=== PATIENT | male | born 1975 | race Hispanic/Latino ===

== ENCOUNTER 2017-11-01 21:57 | Emergency (ER) | payer OTHER ==
[2017-11-01] MEDS ORDERED: ASPIRIN 325 MG TABLET ONE (22:12)
[2017-11-01] MEDS ORDERED: ACETAMINOPHEN-CODEINE ELIXIR 5 ML UDCUP ONE (22:12)
[2017-11-01] MEDS ORDERED: MAGNESIUM HYDROXIDE 30 ML/UDCUP ONE (22:12)
[2017-11-01] MEDS ORDERED: LIDOCAINE HCL 2% VISCOUS 15 ML UDCUP ONE (22:12)
[2017-11-01 22:19] LABS: BASOPHILS % (AUTO) 0.5 % (0.0-5.0); EOSINOPHILS % (AUTO) 3.8 % (0.0-8.0); HEMATOCRIT 38.7 % (42-54); LYMPHOCYTES % (AUTO) 32.9 % (21.0-51.0); MEAN CORPUSCULAR HEMOGLOBIN 27.3 pg (27.0-33.0); MEAN CORPUSCULAR HGB CONC 34.5 g/dL (32.0-36.0); MEAN CORPUSCULAR VOLUME 79.1 fL (79-99); MONOCYTES % (AUTO) 9.2 % (3.0-13.0); NEUTROPHILS % (AUTO) 53.6 % (40.0-77.0); PLATELET COUNT (AUTO) 301 K/uL (130-400); RED BLOOD CELL COUNT(AUTO) 4.89 MIL/uL (4.50-6.20); RED CELL DISTRIBUTION WIDTH 13.1 % (11.0-15.5); WHITE BLOOD COUNT (AUTO) 6.6 K/uL (4.8-10.8)
[2017-11-01 22:32] LABS: PARTIAL THROMBOPLASTIN TIME 29.4 SEC (26.3-35.5); PROTHROMBIN TIME 10.5 SEC (9.6-11.6)
[2017-11-01 22:42] LABS: CREATININE 0.8 mg/dL (0.5-1.5); POTASSIUM 3.6 mmol/L (3.5-5.1)
[2017-11-01 22:47] LABS: B-TYPE NATRIURETIC PEPTIDE < 5 pg/mL (0-100)
[2017-11-01 22:49] LABS: ALBUMIN 3.7 g/dL (3.5-5.0); BILIRUBIN,TOTAL 0.5 mg/dL (0.2-1.0); TOTAL PROTEIN, SERUM 7.3 g/dL (6.0-8.3)
[2017-11-01] MEDS ORDERED: MAG HYDROX/AL HYDROX/SIMETH ES 30 ML SUSP UDCUP ONE (22:51)
[2017-11-01 23:16] LABS: AMPHET/METH SCREEN,URINE NEGATIVE (NEGATIVE); BARBITURATE SCREEN, URINE NEGATIVE (NEGATIVE); BENZODIAZEPINES SCREEN,URINE NEGATIVE (NEGATIVE); CANNABINOID SCREEN,URINE NEGATIVE (NEGATIVE); COCAINE SCREEN,URINE NEGATIVE (NEGATIVE); OPIATE SCREEN,URINE NEGATIVE (NEGATIVE); PHENCYCLIDINE SCREEN,URINE NEGATIVE (NEGATIVE)
== END 2017-11-02 01:03 | disposition home or self-care (01) ==
LOC: EDH 21:57
DX: R07.89 Other chest pain (principal); K21.9 Gastro-esophageal reflux disease without esophagitis; K29.70 Gastritis, unspecified, without bleeding; I10 Essential (primary) hypertension; E78.5 Hyperlipidemia, unspecified; I25.10 Atherosclerotic heart disease of native coronary artery without angina pectoris; Z98.890 Other specified postprocedural states; Z72.0 Tobacco use; Z71.6 Tobacco abuse counseling
CPT/HCPCS: 36415; 71045; 80053; 80305; 83690; 83880; 84484; 85025; 85610; 85730; 93005

== ENCOUNTER 2019-02-23 12:20 | Emergency (ER) | payer OTHER ==
[2019-02-23 12:57] LABS: BASOPHILS % (AUTO) 0.7 % (0.0-5.0); EOSINOPHILS % (AUTO) 2.2 % (0.0-8.0); HEMATOCRIT 45.5 % (42-54); LYMPHOCYTES % (AUTO) 33.7 % (21.0-51.0); MEAN CORPUSCULAR HEMOGLOBIN 26.6 pg (27.0-33.0); MEAN CORPUSCULAR HGB CONC 33.1 g/dL (32.0-36.0); MEAN CORPUSCULAR VOLUME 80.3 fL (79-99); MONOCYTES % (AUTO) 6.9 % (3.0-13.0); NEUTROPHILS % (AUTO) 56.5 % (40.0-77.0); PLATELET COUNT (AUTO) 236 K/uL (130-400); RED BLOOD CELL COUNT(AUTO) 5.67 MIL/uL (4.50-6.20); RED CELL DISTRIBUTION WIDTH 13.7 % (11.0-15.5); WHITE BLOOD COUNT (AUTO) 6.2 K/uL (4.8-10.8)
[2019-02-23 13:07] LABS: CREATININE 0.9 mg/dL (0.5-1.5); CRP QUANTITATIVE 4.4 mg/L (0.00-9.0); POTASSIUM 4.3 mmol/L (3.5-5.1)
[2019-02-23] MEDS ORDERED: HYDROCODONE/ACETAMINOPHEN 5/325 MG TAB ONE (13:22)
[2019-02-23 14:04] LABS: ERYTHROCYTE SEDIMENTATION RATE 4 MM/HR (0-15)
[2019-02-23] MEDS ORDERED: AMOXICILLIN/POTASSIUM CLAV 875-125 TABLET PO ONE (15:31)
== END 2019-02-23 16:00 | disposition home or self-care (01) ==
LOC: EDH 12:20
DX: T81.41XA Infection following a procedure, superficial incisional surgical site, initial encounter (principal); I10 Essential (primary) hypertension; I25.10 Atherosclerotic heart disease of native coronary artery without angina pectoris; Y83.8 Other surgical procedures as the cause of abnormal reaction of the patient, or of later complication, without mention of misadventure at the time of the procedure; Y92.89 Other specified places as the place of occurrence of the external cause
CPT/HCPCS: 36415; 73140; 80048; 85025; 85651; 86140; 87070; 87076; 87077; 87186

== ENCOUNTER 2019-04-10 11:16 | Emergency (ER) | payer OTHER ==
[2019-04-10] MEDS ORDERED: ONDANSETRON HCL 4 MG/2 ML VIAL ONE (11:53)
[2019-04-10] MEDS ORDERED: KETOROLAC TROMETHAMINE 30MG/ML ONE (11:53)
[2019-04-10] MEDS ORDERED: MORPHINE SULFATE 4 MG/1ML SYG ONE (11:54)
[2019-04-10 11:58] LABS: APPEARANCE,URINE CLOUDY (CLEAR); BILIRUBIN,URINE NEGATIVE (NEGATIVE); COLOR,URINE RED (YELLOW); GLUCOSE, URINE (UA) NEGATIVE (NEGATIVE); KETONES,URINE 5 mg/dL (NEGATIVE); LEUKOCYTE ESTERASE ,URINE MODERATE (NEGATIVE); NITRATE,URINE POSITIVE (NEGATIVE); OCCULT BLOOD,URINE LARGE (NEGATIVE); PH,URINE 6.5 (5.0-8.0); PROTEIN,URINE >=300 mg/dL (NEGATIVE)
[2019-04-10 12:06] LABS: RBC,URINE TNTC /HPF (0-1); WBC,URINE 26-50 /HPF (0-1)
[2019-04-10 12:07] LABS: BACTERIA,URINE Few /HPF (None Seen); SQUAMOUS EPITHELIAL CELL,UR Rare /HPF (0-2)
[2019-04-10 12:15] LABS: BASOPHILS % (AUTO) 0.3 % (0.0-5.0); EOSINOPHILS % (AUTO) 1.5 % (0.0-8.0); LYMPHOCYTES % (AUTO) 37.5 % (21.0-51.0); MEAN CORPUSCULAR HEMOGLOBIN 26.3 pg (27.0-33.0); MEAN CORPUSCULAR HGB CONC 32.9 g/dL (32.0-36.0); MEAN CORPUSCULAR VOLUME 79.9 fL (79-99); NEUTROPHILS % (AUTO) 52.7 % (40.0-77.0); PLATELET COUNT (AUTO) 234 K/uL (130-400); RED BLOOD CELL COUNT(AUTO) 5.14 MIL/uL (4.50-6.20); RED CELL DISTRIBUTION WIDTH 14.2 % (11.0-15.5); WHITE BLOOD COUNT (AUTO) 7.1 K/uL (4.8-10.8)
[2019-04-10 12:20] LABS: POTASSIUM 3.7 mmol/L (3.5-5.1)
[2019-04-10] MEDS ORDERED: CEFTRIAXONE SODIUM 1 GM ONE (12:26)
[2019-04-10] MEDS ORDERED: SODIUM CHLORIDE 0.9% 50 ML IV ONE (12:26)
== END 2019-04-10 14:05 | disposition home or self-care (01) ==
LOC: EDH 11:16
DX: N23 Unspecified renal colic (principal); N13.39 Other hydronephrosis; M54.5 Low back pain; I10 Essential (primary) hypertension; E78.5 Hyperlipidemia, unspecified; I25.10 Atherosclerotic heart disease of native coronary artery without angina pectoris; Z87.442 Personal history of urinary calculi
CPT/HCPCS: 36415; 74176; 80048; 81001; 85025; 87088; 96374; 96375; 99285; J0696; J1885; J2270; J2405

== ENCOUNTER 2019-04-11 07:05 | Emergency (ER) | payer SELFPAY ==
[2019-04-11] MEDS ORDERED: ONDANSETRON 4 MG TABLET ONE (08:26)
[2019-04-11] MEDS ORDERED: MORPHINE SULFATE 4 MG/1ML SYG ONE (08:27)
[2019-04-11] MEDS ORDERED: KETOROLAC TROMETHAMINE 60 MG/2 ML VIAL ONE (08:27)
== END 2019-04-11 09:16 | disposition home or self-care (01) ==
LOC: EDH 07:05
DX: N23 Unspecified renal colic (principal)
CPT/HCPCS: 96372 ×2; 99284; J1885; J2270; Q0162

== ENCOUNTER 2025-01-23 11:25 | Inpatient (IN) | payer BC, OTHER ==
[~2025-01-23] VITALS: Ht 175.3 cm; Wt 119.7 kg
[2025-01-23 12:40] LABS: BASOPHILS # (AUTO) 0.04 K/uL (0.00-0.20); BASOPHILS % (AUTO) 0.5 % (0.0-5.0); EOSINOPHILS # (AUTO) 0.17 K/uL (0.00-0.70); EOSINOPHILS % (AUTO) 2.2 % (0.0-8.0); HEMATOCRIT 45.7 % (42-54); IMMATURE GRANULOCYTE ABSOLUTE 0.05 K/uL (0-1); LYMPHOCYTES # (AUTO) 2.4 K/uL (1.0-4.8); LYMPHOCYTES % (AUTO) 30.5 % (21.0-51.0); MEAN CORPUSCULAR HEMOGLOBIN 26.5 pg (27.0-33.0); MEAN CORPUSCULAR HGB CONC 32.4 g/dL (32.0-36.0); MEAN CORPUSCULAR VOLUME 81.8 fL (79-99); MONOCYTES # (AUTO) 0.6 K/uL (0.1-1.0); MONOCYTES % (AUTO) 8.2 % (3.0-13.0); NEUTROPHILS # (AUTO) 4.5 K/uL (1.8-7.7); PLATELET COUNT (AUTO) 262 K/uL (130-400); RED BLOOD CELL COUNT(AUTO) 5.59 MIL/uL (4.50-6.20); RED CELL DISTRIBUTION WIDTH 13.9 % (11.0-15.5); WHITE BLOOD COUNT (AUTO) 7.8 K/uL (4.8-10.8)
[2025-01-23 12:49] LABS: POTASSIUM 4.4 mmol/L (3.5-5.1)
[2025-01-23 12:53] LABS: ALBUMIN 3.8 g/dL (3.5-5.0); BILIRUBIN,DIRECT 0.1 mg/dL (0.0-0.3); BILIRUBIN,TOTAL 0.3 mg/dL (0.2-1.0); TOTAL PROTEIN, SERUM 7.3 g/dL (6.0-8.3)
[2025-01-23] MEDS: PANTOPrazole 40 MG TAB DR PO ONE (14:30)
[2025-01-23] MEDS: LIDOCAINE HCL 2% VISCOUS 15 ML UDCUP PO ONE (14:31)
[2025-01-23] MEDS: MAG/ALUM/SIMETH 30 ML UDCUP PO ONE (14:31)
[2025-01-23] MEDS: ketOROlac 15MG/ML VIAL (15MG/ML) IM ONE (14:31)
[2025-01-23 14:32] LABS: APPEARANCE,URINE CLEAR (CLEAR); BILIRUBIN,URINE NEGATIVE (NEGATIVE); COLOR,URINE LIGHT-YELLOW (YELLOW); GLUCOSE, URINE (UA) NEGATIVE (NEGATIVE); KETONES,URINE NEGATIVE (NEGATIVE); LEUKOCYTE ESTERASE ,URINE NEGATIVE Leu/uL (NEGATIVE); MUCUS,URINE RARE LPF (None Seen); NITRATE,URINE NEGATIVE (NEGATIVE); OCCULT BLOOD,URINE NEGATIVE (NEGATIVE); PROTEIN,URINE NEGATIVE (NEGATIVE); RBC,URINE 0-1 /HPF (0-1); UROBILINOGEN,URINE 0.2 mg/dL (0.2-1.0); WBC,URINE 0-1 /HPF (0-1)
[2025-01-23] MEDS: ondanSETRON 4MG INJ IVP ONE (15:00)
[2025-01-23] MEDS: morPHINE 4 MG SYG IVP ONE (15:00)
[2025-01-23] MEDS ORDERED: IOHEXOL-350 75 ML VIAL IV ONE (15:06)
--- NOTE | 2025-01-23 15:42 | HMCIMG ---
CT ABDOMEN/PELVIS W/CONTRAST HISTORY: Epigastric pain COMPARISON: 04/10/2019 TECHNIQUE: Multiple sequential axial images of the abdomen and pelvis were obtained from the dome of the diaphragm through symphysis pubis. Patient was not given contrast through intravenous route. Oral contrast was not given. FINDINGS: No pleural effusion is seen bilaterally. There is no evidence of parenchymal disease or pulmonary nodule of the visualized lower lungs. Degenerative changes of the thoracolumbar spine are present. The heart is not enlarged. Gallbladder is moderately distended with irregular contour and possible wall thickening. Findings may be related to acute cholecystitis. Clinical correlation is recommended. There is diverticulosis. The liver, spleen, adrenal glands and pancreas are unremarkable. There is no evidence of hydronephrosis bilaterally. No evidence of renal stone is seen. Fecal material is seen in the colon. There are normal size retroperitoneal and mesenteric lymph nodes. No ascites is seen. No CT evidence of acute appendicitis is seen. Clinical correlation is Pelvic sidewalls are symmetric bilaterally. Bladder is poorly distended. IMPRESSION: 1. Gallbladder is moderately distended with irregular contour and possible wall thickening. Findings may be related to acute cholecystitis. Clinical correlation is recommended. There is diverticulosis. CT was performed with one or more following dose reduction techniques: automated exposure control, adjustment of the mA and kv according to patient's size, or use of a iterative reconstruction technique.
--- NOTE | 2025-01-23 17:11 | HP ---
[facility] HISTORY AND PHYSICAL Date of Service: Jan 23, 2025 Time of Service: 17:04 HISTORY OF PRESENT ILLNESS: 49-year-old male with past medical history of hypertension, obesity, who presented to [facility] ED earlier today brought by his spouse for concerns of abdominal pain associated with nausea. Patient reports pain mostly to the epigastric and right upper quadrant region. He reports nausea however no emesis. No chest pain shortness breath fever chills constipation diarrhea or dysuria. Patient states he has had similar episodes in the past, however today's pain was more intense, therefore he decided to come to the hospital for further evaluation. Upon arrival to ED he was noted afebrile, blood pressure 132/97, heart rate 97, respiration rate 16, O2 saturation 98% on room air. Further evaluation labs revealed no worrisome findings. CT a/P showing moderately distended gallbladder with wall thickening consistent with acute cholecystitis. In the ED patient was initiated on IVF, IV Protonix, given doses of IV morphine, and IM Toradol for pain control. Request then made to admit to the hospital for further evaluation. A surgical consult has also been requested. REVIEW OF SYSTEMS CONSTITUTIONAL: Denies fevers, chills, or night sweats. No unintentional weight loss reported. NEUROLOGICAL: Denies headache, amaurosis fugax, motor weakness, sensory deficit, vertigo/spinning sensation, gait abnormalities, or tremors. ENT: No hearing loss, otalgia, otorrhea, rhinitis, rhinorrhea, hoarseness, or sore throat. CARDIOVASCULAR: Denies any exertional angina, dyspnea on exertion, orthopnea, paroxysmal nocturnal dyspnea, palpitations, life-threatening arrhythmias, claudication. PULMONARY: Denies any shortness of breath, cough, phlegm/sputum, hemoptysis, pleuritic chest pain. SLEEP: Denies morning headaches, daytime somnolence or napping. Denies difficulty falling asleep, staying asleep, waking from sleep. Denies knowledge of snoring. GASTROINTESTINAL: As mentioned in HPI GENITOURINARY: Denies frequency, urgency, nocturia, hematuria or incontinence (Storage/Irritative symptoms.) Low urinary stream, straining to void, urinary intermittency or hesitancy, splitting of the voiding stream, terminal dribbling. ENDOCRINOLOGIC: Denies polyuria, polydipsia, polyphagia or heat/cold intolerances. HEMATOLOGIC: Denies thrombophilia/previous clots, or coagulopathy/bleeding disorders. ONCOLOGIC: Denies personal history of malignancy. DERMATOLOGIC: Denies rashes or pruritus. PSYCHIATRIC: Denies any suicidal or homicidal ideation. Denies hallucinations. PAST MEDICAL HISTORY: As mentioned in HPI PAST SURGICAL HISTORY: Knee surgery Finger surgery Kidney stone surgery PAST SOCIAL HISTORY: No tobacco no alcohol no substance abuse FAMILY HISTORY: Noncontributory Coded Allergies: No Known Allergies (Unverified Allergy, Unknown, 02/23/19) PHYSICAL EXAM GENERAL APPEARANCE: The patient is awake, alert, and oriented, in no acute cardiopulmonary distress. NEUROLOGICAL: Cranial nerves II-XII grossly intact. Motor is 5/5 in bilateral upper and lower extremities proximal to distal. No sensory deficits. HEENT: Face is symmetric. Pupils are equal and reactive. Extraocular movements are intact. NECK: Supple. No JVD. No thyromegaly. No submental, submandibular, pre-/postauricular, occipital or supraclavicular lymphadenopathy. CHEST: Normal chest expansion. No Telemetry. LUNGS: Absence of any rales, rhonchi or any wheezing. CARDIOVASCULAR: Regular. S1 and S2 normal. No appreciable rubs, murmurs or gallops. ABDOMEN: Soft, bowel sounds positive. Epigastric and RUQ tenderness. No rebound tenderness no guarding no rigidity. Nondistended. : Deferred. No Kenny. EXTREMITIES: Non-edematous and not cyanotic. No clubbing. Good capillary refill. SKIN: No skin breakdown. Vital Sign (Last 24 Hours) 01/23/25 14:13 Temp 98.2 Pulse 97 Resp 16 B/P (MAP) 132/97 Pulse Ox 98 O2 Delivery Room Air* O2 Flow Rate 0 FiO2 21 LABS: Laboratory: Test 01/23/25 14:12 01/23/25 12:32 Range/Units Urine Color LIGHT-YELLOW YELLOW Urine Appearance CLEAR CLEAR Urine pH 6.0 5.0-8.0 Urine Specific [place] 1.024 1.001-1.031 Urine Protein NEGATIVE NEGATIVE mg/dL Urine Glucose (UA) NEGATIVE NEGATIVE mg/dL Urine Ketones NEGATIVE NEGATIVE mg/dL Urine Occult Blood NEGATIVE NEGATIVE Urine Nitrate NEGATIVE NEGATIVE Urine Bilirubin NEGATIVE NEGATIVE mg/dL Urine Urobilinogen 0.2 0.2-1.0 mg/dL Urine Leukocyte Esterase NEGATIVE NEGATIVE Bruce/uL Urine RBC 0-1 0-1 /HPF Urine WBC 0-1 0-1 /HPF Urine Bacteria None None Seen /HPF White Blood Count 7.8 4.8-10.8 K/uL Red Blood Count 5.59 4.50-6.20 MIL/uL Hemoglobin 14.8 14.0-18.0 g/dL Hematocrit 45.7 42-54 % Mean Corpuscular Volume 81.8 79-99 fL Mean Corpuscular Hemoglobin 26.5 L 27.0-33.0 pg Mean Corpuscular Hemoglobin Concent 32.4 32.0-36.0 g/dL Red Cell Distribution Width 13.9 11.0-15.5 % Platelet Count 262 130-400 K/uL Mean Platelet Volume 9.4 7.5-10.5 fL Immature Granulocyte % (Auto) 0.6 0-1 % Neutrophils (%) (Auto) 58.0 40.0-77.0 % Lymphocytes (%) (Auto) 30.5 21.0-51.0 % Monocytes (%) (Auto) 8.2 3.0-13.0 % Eosinophils (%) (Auto) 2.2 0.0-8.0 % Basophils (%) (Auto) 0.5 0.0-5.0 % Neutrophils # (Auto) 4.5 1.8-7.7 K/uL Lymphocytes # (Auto) 2.4 1.0-4.8 K/uL Monocytes # (Auto) 0.6 0.1-1.0 K/uL Eosinophils # (Auto) 0.17 0.00-0.70 K/uL Basophils # (Auto) 0.04 0.00-0.20 K/uL Absolute Immature Granulocyte (auto 0.05 0-1 K/uL Nucleated Red Blood Cells 0.0 0.0-0.19 % Sodium Level 139 136-145 mmol/L Potassium Level 4.4 3.5-5.1 mmol/L Chloride Level 103 101-111 mmol/L Carbon Dioxide Level 30 21-32 mmol/L Blood Urea Nitrogen 22 H 7-18 mg/dL Creatinine 1.0 0.5-1.3 mg/dL Glomerular Filtration Rate Calc 92 >90 mL/min Random Glucose 96 70-105 mg/dL Total Calcium 9.0 8.5-10.1 mg/dL Total Bilirubin 0.3 0.2-1.0 mg/dL Direct Bilirubin 0.1 0.0-0.3 mg/dL Aspartate Amino Transf (AST/SGOT) 13 10-37 U/L Alanine Aminotransferase (ALT/SGPT) 21 12-78 U/L Alkaline Phosphatase 87 50-136 U/L Total Protein 7.3 6.0-8.3 g/dL Albumin 3.8 3.5-5.0 g/dL Lipase 58 16-77 U/L DIAGNOSTICS / RADIOLOGY: [ ] ASSESSMENT: Acute cholecystitis POA Essential hypertension Obesity PLAN: Admit patient to [facility] floor under hospitalist team Obtain home medications, reconcile and resume accordingly Obtain abdominal ultrasound Keep patient NPO for now. LR at75 mL/hour. Place patient on Zosyn 3.375 g IV q.8 hours. Pain control Surgical consult requested follow up with recommendations SCDs for DVT prophylaxis Pepcid for GI prophylaxis P.r.n. medications for fever, pain, nausea, constipation Follow up a.m. labs Further orders per hospital course ADVANC[facility]ARE PLANNING 1. Which of the following were discussed? Hospice Care - No Therapeutic options - Yes Advance Directives - Yes Other discussions - 2. Discussed with who? The patient 3. Voluntary nature of this service was explained to the patient? Yes 4. Amount of time spent - __ 20 minutes 5. Reviewed by Physician? (if this service was performed by NPP) Yes DORCAS SANTANA Jan 23, 2025 17:10
[2025-01-23] MEDS ORDERED: NITROGLYCERIN 0.4 MG SL TAB SL PRN (17:30)
[2025-01-23] MEDS ORDERED: hydrALAZine 20MG/ML VIAL IV PRN (17:30)
[2025-01-23] MEDS ORDERED: LACTULOSE 20 GM/30 ML UDCUP PO PRN (17:30)
[2025-01-23] MEDS ORDERED: morPHINE 2 MG SYG IV PRN (17:30)
[2025-01-23] MEDS ORDERED: acetaMINOPHEN 325 MG TAB PO PRN (17:30)
[2025-01-23] MEDS ORDERED: MAG/ALUM/SIMETH 30 ML UDCUP PO PRN (17:30)
[2025-01-23] MEDS ORDERED: ondanSETRON 4MG INJ IV PRN (17:30)
--- NOTE | 2025-01-23 17:34 | ERN ---
General Chief Complaint: Abdominal Pain Stated Complaint: ABDOMINAL PAIN Time Seen by MD: 12:21 Time Seen by Midlevel: 12:21 Source: patient History of Present Illness Initial Comments 49-year-old male who presents to the emergency department due to abdominal pain onset 2:00 a.m. Patient reports nausea and pain to the right upper quadrant and epigastric area. Denies any SOB, chest pain, vomiting, fevers or further associated symptoms. Patient reports previous similar episodes in which she was diagnosed with sludge in the gallbladder. PMHx HTN Allergies: Coded Allergies: No Known Allergies (Unverified Allergy, Unknown, 02/23/19) Past Medical History Past Medical History: Hypertension Past Surgical History: Other Surgical History Other: LEFT INDEX FINGER, LFT KNEE SX, ROS Dictation Constitutional: Negative for fever,chills, and weight loss Eyes: Negative for injury, pain,redness, and discharge ENT: Negative for injury,pain or swelling Cardiovascular: Negative for chest pain, palpitations, and edema Respiratory: Negative for shortness of breath, cough, and wheezing, Abdomen/GI: Positive for abdominal pain, nausea Negative for vomiting, diarrhea, and constipation Back: Negative for injury and pain : Negative for painful urination, bleeding or discharge MS/Extremity: Negative for injury and deformity Skin: Negative for rash, and discoloration Neuro: Negative for headache, weakness, numbness, tingling, and seizure Psych: Negative for suicide ideation, homicidal ideation, and hallucinations Physical Exam Physical Exam Dictation General: awake, alert, no acute distress Head/Face: Normocephalic, atraumatic Eyes: PERRL, EOMI, normal conjuctiva ENT: oral cavity clear, TMs clear, oral mucosa moist Neck: Supple, normal range of motion Cardiovascular: RRR, normal S1/S2 Respiratory: CTAB, no respiratory distress, no rales or wheezes Abdomen: Soft, right upper quadrant and epigastric tenderness, non-distended, no guarding or rebound. Skin: Warm, dry, normal turgor, no rash MS/Extremity: Pulses equal, no cyanosis, neurovascular intact, FROM Neuro: COAx4, GCS 15, strength 5/5, CN 2-12 intact, normal cerebellar exam, normal gait Psych: Normal behavior, mood, and affect normal Results Laboratory and Microbiology Lab and Micro Result Laboratory Tests Test 01/23/25 12:32 01/23/25 14:12 White Blood Count 7.8 K/uL (4.8-10.8) Red Blood Count 5.59 MIL/uL (4.50-6.20) Hemoglobin 14.8 g/dL (14.0-18.0) Hematocrit 45.7 % (42-54) Mean Corpuscular Volume 81.8 fL (79-99) Mean Corpuscular Hemoglobin 26.5 pg (27.0-33.0) L Mean Corpuscular Hemoglobin Concent 32.4 g/dL (32.0-36.0) Red Cell Distribution Width 13.9 % (11.0-15.5) Platelet Count 262 K/uL (130-400) Mean Platelet Volume 9.4 fL (7.5-10.5) Immature Granulocyte % (Auto) 0.6 % (0-1) Neutrophils (%) (Auto) 58.0 % (40.0-77.0) Lymphocytes (%) (Auto) 30.5 % (21.0-51.0) Monocytes (%) (Auto) 8.2 % (3.0-13.0) Eosinophils (%) (Auto) 2.2 % (0.0-8.0) Basophils (%) (Auto) 0.5 % (0.0-5.0) Neutrophils # (Auto) 4.5 K/uL (1.8-7.7) Lymphocytes # (Auto) 2.4 K/uL (1.0-4.8) Monocytes # (Auto) 0.6 K/uL (0.1-1.0) Eosinophils # (Auto) 0.17 K/uL (0.00-0.70) Basophils # (Auto) 0.04 K/uL (0.00-0.20) Absolute Immature Granulocyte (auto 0.05 K/uL (0-1) Nucleated Red Blood Cells 0.0 % (0.0-0.19) Sodium Level 139 mmol/L (136-145) Potassium Level 4.4 mmol/L (3.5-5.1) Chloride Level 103 mmol/L (101-111) Carbon Dioxide Level 30 mmol/L (21-32) Blood Urea Nitrogen 22 mg/dL (7-18) H Creatinine 1.0 mg/dL (0.5-1.3) Glomerular Filtration Rate Calc 92 mL/min (>90) Random Glucose 96 mg/dL (70-105) Total Calcium 9.0 mg/dL (8.5-10.1) Total Bilirubin 0.3 mg/dL (0.2-1.0) Direct Bilirubin 0.1 mg/dL (0.0-0.3) Aspartate Amino Transf (AST/SGOT) 13 U/L (10-37) Alanine Aminotransferase (ALT/SGPT) 21 U/L (12-78) Alkaline Phosphatase 87 U/L (50-136) Total Protein 7.3 g/dL (6.0-8.3) Albumin 3.8 g/dL (3.5-5.0) Lipase 58 U/L (16-77) Urine Color LIGHT-YELLOW (YELLOW) Urine Appearance CLEAR (CLEAR) Urine pH 6.0 (5.0-8.0) Urine Specific [place] 1.024 (1.001-1.031) Urine Protein NEGATIVE mg/dL (NEGATIVE) Urine Glucose (UA) NEGATIVE mg/dL (NEGATIVE) Urine Ketones NEGATIVE mg/dL (NEGATIVE) Urine Occult Blood NEGATIVE (NEGATIVE) Urine Nitrate NEGATIVE (NEGATIVE) Urine Bilirubin NEGATIVE mg/dL (NEGATIVE) Urine Urobilinogen 0.2 mg/dL (0.2-1.0) Urine Leukocyte Esterase NEGATIVE Bruce/uL Urine RBC 0-1 /HPF (0-1) Urine WBC 0-1 /HPF (0-1) Urine Bacteria None /HPF (None Seen) Labs Reviewed?: Yes EKG/XRAY/US/CT/MRI CT Scan Comment REASON: RUQ, epigastric pain ORDERING PHYSICIAN: NAYE ALFREDO PROCEDURE: ABD PEL W - CT ABDOMEN/PELVIS W/CONTRAST CT ABDOMEN/PELVIS W/CONTRAST HISTORY: Epigastric pain COMPARISON: 04/10/2019 TECHNIQUE: Multiple sequential axial images of the abdomen and pelvis were obtained from the dome of the diaphragm through symphysis pubis. Patient was not given contrast through intravenous route. Oral contrast was not given. FINDINGS: No pleural effusion is seen bilaterally. There is no evidence of parenchymal disease or pulmonary nodule of the visualized lower lungs. Degenerative changes of the thoracolumbar spine are present. The heart is not enlarged. Gallbladder is moderately distended with irregular contour and possible wall thickening. Findings may be related to acute cholecystitis. Clinical correlation is recommended. There is diverticulosis. The liver, spleen, adrenal glands and pancreas are unremarkable. There is no evidence of hydronephrosis bilaterally. No evidence of renal stone is seen. Fecal material is seen in the colon. There are normal size retroperitoneal and mesenteric lymph nodes. No ascites is seen. No CT evidence of acute appendicitis is seen. Clinical correlation is Pelvic sidewalls are symmetric bilaterally. Bladder is poorly distended. IMPRESSION: 1. Gallbladder is moderately distended with irregular contour and possible wall thickening. Findings may be related to acute cholecystitis. Clinical correlation is recommended. There is diverticulosis. CT was performed with one or more following dose reduction techniques: automated exposure control, adjustment of the mA and kv according to patient's size, or use of a iterative reconstruction technique. DICTATED BY: JUSTINE THAKUR MD DATE: 01/23/251534 [facility] MDM: Differential diagnosis: Cholelithiasis, cholecystitis, fatty liver, gastritis, acid reflux Rationale: 49-year-old male who presents to the emergency department due to abdominal pain onset 2:00 a.m. Patient reports nausea and pain to the right upper quadrant and epigastric area. Denies any SOB, chest pain, vomiting, feve rs or further associated symptoms. Patient reports previous similar episodes in which she was diagnosed with sludge in the gallbladder. PMHx HTN Labs obtained CBC and chemistry, LFTs within normal limits, UA negative for urinary tract infection. CT abdomen and pelvis shows gallbladder distention with wall thickening, possible cholecystitis. Vitals stable during ED course. Patient was administered GI cocktail, Zofran. Admission for further evaluation was discussed with patient who verbalized understanding and agrees with admission. Case discussed with hospitalist who accepted admission. Previous outside records reviewed: Old ER visits. Risk of complication and/or morbidity or mortality of patient management: None Medications-Per medication reconciliation Need for hospitalization: Patient does meet criteria for hospitalization. Need for emergency major/minor surgery: No There are no social concerns with this patient. Prescription drug management Prescriptions will include symptomatic care Patient's prior external medical records from other ER visits were reviewed by me as indicated. Prior testing and results from previous visits were reviewed. Prior tests were taken into account with medical decision making and resource utilization, independent historian/historians were used to obtain complete medical history. I independently interpreted the test that were performed, results were reviewed by me and considered findings on radiology if ordered. Medical management and examination interpretation discussions were had by me with other qualified healthcare professionals as indicated for the patient's care. ED Course Orders Procedure Category Date Status Time Cbc With Differential LAB 01/23/25 Complete 12:21 Basic Metabolic Panel LAB 01/23/25 Complete 12:21 Hepatic Function Panel LAB 01/23/25 Complete 12:21 Urinalysis LAB 01/23/25 Complete W/Microscopic 12:21 Lipase LAB 01/23/25 Complete 12:21 Mag/Alum/Simeth 30ml PHA 01/23/25 Complete (Maalox Plus 30ml) 12:30 Lidocaine Hcl 2% PHA 01/23/25 Complete Viscous (Lidocaine Hcl 12:30 Pantoprazole 40mg Tab PHA 01/23/25 Complete (Protonix 40mg Tab 12:30 Ct Abdomen/Pelvis CT 01/23/25 Resulted W/Contrast 12:21 Ketorolac PHA 01/23/25 Complete Tromethamine 15mg/Ml 12:30 Morphine 4mg Syg PHA 01/23/25 Complete (Morphine 4mg Syg) 15:00 Ondansetron 4mg Inj PHA 01/23/25 Complete (Zofran 4mg Inj) 15:00 Iohexol (Omnipaque) PHA 01/23/25 Complete 15:06 General Surgery CONPHYSVC 01/23/25 Transmitted Consult 16:32 Current Medications Medications (Trade) Dose Ordered Sig/Margarito Route PRN Reason Start Time Stop Time Status Last Admin Dose Admin Al Hydroxide/Mg Hydroxide (MAALox PLUS 30ML) 30 ml ONCE ONCE PO 01/23/25 12:30 01/23/25 12:31 DC 01/23/25 14:31 Iohexol (Omnipaque) 75 ml STK-MED ONCE IV 01/23/25 15:06 01/23/25 15:09 DC Ketorolac Tromethamine (toRADol) 15 mg ONCE ONCE IM 01/23/25 12:30 01/23/25 12:31 DC 01/23/25 14:31 Lidocaine HCl (Lidocaine HCl 2% Viscous) 10 ml ONCE ONCE PO 01/23/25 12:30 01/23/25 12:31 DC 01/23/25 14:31 Morphine Sulfate (morPHINE 4MG SYG) 4 mg ONCE ONCE IVP 01/23/25 15:00 01/23/25 15:01 DC Ondansetron HCl (zoFRAN 4MG INJ) 4 mg ONCE ONCE IVP 01/23/25 15:00 01/23/25 15:01 DC Pantoprazole Sodium (PROTonix 40MG TAB) 40 mg ONCE ONCE PO 01/23/25 12:30 01/23/25 12:31 DC 01/23/25 14:30 Vital Signs Date Time Temp Pulse Resp B/P (MAP) Pulse Ox O2 Delivery O2 Flow Rate FiO2 01/23/25 14:13 98.2 97 16 132/97 98 Room Air* 0 21 01/23/25 12:14 98.2 97 16 132/97 98 Room Air 0 DX & DISP Disposition: Inpatient Decision to Admit Date: Jan 23, 2025 Departure Impression: Primary Impression: Acute cholecystitis Condition: Stable Referrals: CALVIN VALENTINO MD (PCP) I performed the substantive portion of the visit. I have reviewed and personally made and approve the management plan that is documented in the notes by myself or the DAISY. I acknowledge full responsibility for the patient's management plan. NAYE ALFREDO Jan 23, 2025 17:34 SKYLAR TRIPATHI DO January 24, 2025 09:47
[2025-01-23] MEDS: LACTATED RINGERS 1000ML 1,000 ML IV SCH (17:51)
[2025-01-23 18:20] VITALS: O2SAT 98
[2025-01-23 18:25] VITALS: BP 136/92; PULSE 74; RESP 18; TEMP 98.7
--- NOTE | 2025-01-23 19:26 | HMCIMG ---
US ABDOMINAL RUQ\E\LTD HISTORY: Right upper quadrant pain COMPARISON: None TECHNIQUE: Right upper quadrant abdominal ultrasound study was performed. FINDINGS: Liver measures 16.2 cm. The visualized portion of the pancreas is within normal limits. Liver is echogenic consistent with liver parenchymal disease. Slight anterior and tiny gallstones are seen within the gallbladder. Common duct measures 3 mm. Gallbladder wall is thick measuring 6 to 9 mm Right kidney measures 11.9 x 6.4 x 4.8 cm. No hydronephrosis is seen of the right kidney. IMPRESSION: 1. Sludge material with tiny gallstones in the gallbladder. No ductal dilatation is seen. Gallbladder wall is thick measuring 6 to 9 mm. 2. No hydronephrosis is seen.
[2025-01-23 20:00] VITALS: BP 119/78; PULSE 64; RESP 18; TEMP 97.8
[2025-01-23] MEDS: ZOSYN 3.375GM+NS 50ML 50 ML IV SCH (21:30)
[2025-01-23] MEDS: FAMOTIDINE 20MG VIAL IV SCH (21:31)
[2025-01-24] VITALS (7 sets, daily range): BP systolic 105–125; BP diastolic 74–81; PULSE 66–74; RESP 16–18; TEMP 97.6–98.9; O2SAT 98–99
--- NOTE | 2025-01-24 11:01 | PN ---
[facility] PROGRESS NOTE Date of Service: January 24, 2025 Time of Service: 10:45 SUBJECTIVE: 49-year-old male with past medical history of hypertension, obesity, who presented to [facility] ED on 01/23/25 was brought by his spouse for concerns of abdominal pain associated with nausea. Patient reports pain mostly to the epigastric and right upper quadrant region. He reports nausea however no emesis. No chest pain shortness breath fever chills constipation diarrhea or dysuria. Patient states he has had similar episodes in the past, however today's pain was more intense, therefore he decided to come to the hospital for further evaluation. Upon arrival to ED he was noted afebrile, blood pressure 132/97, heart rate 97, respiration rate 16, O2 saturation 98% on room air. Further evaluation labs revealed no worrisome findings. CT a/P showing moderately distended gallbladder with wall thickening consistent with acute cholecystitis. In the ED patient was initiated on IVF, IV Protonix, given doses of IV morphine, and IM Toradol for pain control. Patient was admitted for further evaluation. Surgery consult was placed. 01/24/25 patient was seen and evaluated today morning. His family at the bedside. He had a mild right upper quadrant pain but it was tolerated as per the patient. He denies nausea and vomiting today. CT abdomen and pelvis showed gallbladder moderately distended with irregular contour possible wall thickening. Findings may be related to acute cholecystitis. Abdominal ultrasound showed sludge material with tiny gallstones in the gallbladder with no ductal dilation. Patient's last bowel movement was yesterday. Surgery recommended magnesium citrate for bowel patient and put him on full liquid diet for today and NPO from midnight. Plan is for possible robotic cholecystectomy tomorrow morning. REVIEW OF SYSTEMS CONSTITUTIONAL: Denies fevers, chills, or night sweats. No unintentional weight loss reported. ENT: No hearing loss, otalgia, otorrhea, rhinitis, rhinorrhea, hoarseness, or sore throat. CARDIOVASCULAR: Denies any exertional angina, dyspnea on exertion, orthopnea, paroxysmal nocturnal dyspnea, palpitations, life-threatening arrhythmias, claudication. PULMONARY: Denies any shortness of breath, cough, phlegm/sputum, hemoptysis, pleuritic chest pain. SLEEP: Denies morning headaches, daytime somnolence or napping. Denies d ifficulty falling asleep, staying asleep, waking from sleep. Denies knowledge of snoring. GASTROINTESTINAL: Mild right upper quadrant pain with mild tenderness. Nausea resolved. GENITOURINARY: Denies frequency, urgency, nocturia, hematuria or incontinence (Storage/Irritative symptoms.) Low urinary stream, straining to void, urinary intermittency or hesitancy, splitting of the voiding stream, terminal dribbling. ENDOCRINOLOGIC: Denies polyuria, polydipsia, polyphagia or heat/cold intolerances. HEMATOLOGIC: Denies thrombophilia/previous clots, or coagulopathy/bleeding disorders. ONCOLOGIC: Denies personal history of malignancy. PHYSICAL EXAM GENERAL APPEARANCE: The patient is awake, alert, and oriented, in no acute ca rdiopulmonary distress. NECK: Supple. No JVD. No thyromegaly. No submental, submandibular, pre- /postauricular, occipital or supraclavicular lymphadenopathy. CHEST: Normal chest expansion. No Telemetry. LUNGS: Absence of any rales, rhonchi or any wheezing. CARDIOVASCULAR: Regular. S1 and S2 normal. No appreciable rubs, murmurs or gallops. ABDOMEN: Soft, bowel sounds positive. Mild Epigastric and RUQ tenderness. No rebound tenderness no guarding no rigidity. Nondistended. : Deferred. No Kenny. EXTREMITIES: Non-edematous and not cyanotic. No clubbing. Good capillary refill. SKIN: No skin breakdown. Vital Signs (last 8hr) Date Time Temp Pulse Resp B/P (MAP) Pulse Ox O2 Delivery O2 Flow Rate FiO2 01/24/25 09:29 99.0 74 18 114/75 98 01/24/25 03:54 97.9 66 18 105/74 98 Room Air LABS: Laboratory: Test 01/23/25 14:12 01/23/25 12:32 Range/Units Urine Color LIGHT-YELLOW YELLOW Urine Appearance CLEAR CLEAR Urine pH 6.0 5.0-8.0 Urine Specific [place] 1.024 1.001-1.031 Urine Protein NEGATIVE NEGATIVE mg/dL Urine Glucose (UA) NEGATIVE NEGATIVE mg/dL Urine Ketones NEGATIVE NEGATIVE mg/dL Urine Occult Blood NEGATIVE NEGATIVE Urine Nitrate NEGATIVE NEGATIVE Urine Bilirubin NEGATIVE NEGATIVE mg/dL Urine Urobilinogen 0.2 0.2-1.0 mg/dL Urine Leukocyte Esterase NEGATIVE NEGATIVE Bruce/uL Urine RBC 0-1 0-1 /HPF Urine WBC 0-1 0-1 /HPF Urine Bacteria None None Seen /HPF White Blood Count 7.8 4.8-10.8 K/uL Red Blood Count 5.59 4.50-6.20 MIL/uL Hemoglobin 14.8 14.0-18.0 g/dL Hematocrit 45.7 42-54 % Mean Corpuscular Volume 81.8 79-99 fL Mean Corpuscular Hemoglobin 26.5 L 27.0-33.0 pg Mean Corpuscular Hemoglobin Concent 32.4 32.0-36.0 g/dL Red Cell Distribution Width 13.9 11.0-15.5 % Platelet Count 262 130-400 K/uL Mean Platelet Volume 9.4 7.5-10.5 fL Immature Granulocyte % (Auto) 0.6 0-1 % Neutrophils (%) (Auto) 58.0 40.0-77.0 % Lymphocytes (%) (Auto) 30.5 21.0-51.0 % Monocytes (%) (Auto) 8.2 3.0-13.0 % Eosinophils (%) (Auto) 2.2 0.0-8.0 % Basophils (%) (Auto) 0.5 0.0-5.0 % Neutrophils # (Auto) 4.5 1.8-7.7 K/uL Lymphocytes # (Auto) 2.4 1.0-4.8 K/uL Monocytes # (Auto) 0.6 0.1-1.0 K/uL Eosinophils # (Auto) 0.17 0.00-0.70 K/uL Basophils # (Auto) 0.04 0.00-0.20 K/uL Absolute Immature Granulocyte (auto 0.05 0-1 K/uL Nucleated Red Blood Cells 0.0 0.0-0.19 % Sodium Level 139 136-145 mmol/L Potassium Level 4.4 3.5-5.1 mmol/L Chloride Level 103 101-111 mmol/L Carbon Dioxide Level 30 21-32 mmol/L Blood Urea Nitrogen 22 H 7-18 mg/dL Creatinine 1.0 0.5-1.3 mg/dL Glomerular Filtration Rate Calc 92 >90 mL/min Random Glucose 96 70-105 mg/dL Total Calcium 9.0 8.5-10.1 mg/dL Total Bilirubin 0.3 0.2-1.0 mg/dL Direct Bilirubin 0.1 0.0-0.3 mg/dL Aspartate Amino Transf (AST/SGOT) 13 10-37 U/L Alanine Aminotransferase (ALT/SGPT) 21 12-78 U/L Alkaline Phosphatase 87 50-136 U/L Total Protein 7.3 6.0-8.3 g/dL Albumin 3.8 3.5-5.0 g/dL Lipase 58 16-77 U/L Current Medications Medications (Trade) Dose Ordered Sig/Margarito Route PRN Reason Start Time Stop Time Status Last Admin Dose Admin Acetaminophen (TYLenol 325MG TAB) 650 mg Q4H PRN PO MILD PAIN (1-3) 01/23/25 17:30 02/22/25 17:29 Acetaminophen (TYLenol 325MG TAB) 650 mg Q6H PRN PO TEMPERATURE GREATER THAN 101.5 01/23/25 17:30 02/22/25 17:29 Al Hydroxide/Mg Hydroxide (MAALox PLUS 30ML) 30 ml Q6H PRN PO INDIGESTION 01/23/25 17:30 02/22/25 17:29 Diphenhydramine HCl (BENAdryl CAP) 25 mg Q4H PRN PO MILD ITCHING/RASH 01/23/25 17:30 02/22/25 17:29 Famotidine (Pepcid 20mg Vial) 20 mg BID IV 01/23/25 21:00 02/22/25 20:59 01/23/25 21:31 20 MG Guaifenesin/ Dextromethorphan (RobiTUSSin DM 200/20MG 10ML) 10 ml Q4H PRN PO COUGH 01/23/25 17:30 02/22/25 17:29 Hydralazine HCl (APRESOLine 20MG INJ) 10 mg Q6H PRN IV For:SBP above 160;DBP above 90 01/23/25 17:30 02/22/25 17:29 Lactated Ringer's 1,000 ml @ 75 mls/hr [id number] IV 01/23/25 17:30 02/22/25 17:29 01/23/25 17:51 75 MLS/HR Lactulose (Constulose 20gm/ 30ml Udcup) 20 gm BID PRN PO CONSTIPATION 01/23/25 17:30 02/22/25 17:29 Morphine Sulfate (morPHINE 2MG SYG) 2 mg Q4H PRN IV MODERATE PAIN (4-6) 01/23/25 17:30 01/30/25 17:29 Morphine Sulfate (morPHINE 4MG SYG) 4 mg Q4H PRN IV SEVERE PAIN (7-10) 01/23/25 17:30 01/30/25 17:29 Nitroglycerin (Nitrostat) 0.4 mg PROTOCOL PRN SL CHEST PAIN 01/23/25 17:30 02/22/25 17:29 Ondansetron HCl (zoFRAN 4MG INJ) 4 mg Q6H PRN IV NAUSEA/VOMITING 01/23/25 17:30 02/22/25 17:29 Piperacillin Sod/ Tazobactam Sod 50 ml @ 12.5 mls/hr Q8H IV 01/23/25 21:00 02/02/25 20:59 01/23/25 21:30 12.5 MLS/HR DIAGNOSTICS / RADIOLOGY: [place] [address] IMAGING REPORT Signed PATIENT: TULIO DENSON MR#: [id number] : 1975 SEX: M AGE: 49 LOCATION: [facility] ORDER 1223 STATUS: [facility] REPORT#: [id number] SERVICE 1221 REASON: RUQ, epigastric pain ORDERING PHYSICIAN: NAYE ALFREDO PROCEDURE: ABD PEL W - CT ABDOMEN/PELVIS W/CONTRAST CT ABDOMEN/PELVIS W/CONTRAST HISTORY: Epigastric pain COMPARISON: 04/10/2019 TECHNIQUE: Multiple sequential axial images of the abdomen and pelvis were obtained from the dome of the diaphragm through symphysis pubis. Patient was not given contrast through intravenous route. Oral contrast was not given. FINDINGS: No pleural effusion is seen bilaterally. There is no evidence of parenchymal disease or pulmonary nodule of the visualized lower lungs. Degenerative changes of the thoracolumbar spine are present. The heart is not enlarged. Gallbladder is moderately distended with irregular contour and possible wall thickening. Findings may be related to acute cholecystitis. Clinical correlation is recommended. There is diverticulosis. The liver, spleen, adrenal glands and pancreas are unremarkable. There is no evidence of hydronephrosis bilaterally. No evidence of renal stone is seen. Fecal material is seen in the colon. There are normal size retroperitoneal and mesenteric lymph nodes. No ascites is seen. No CT evidence of acute appendicitis is seen. Clinical correlation is Pelvic sidewalls are symmetric bilaterally. Bladder is poorly distended. IMPRESSION: 1. Gallbladder is moderately distended with irregular contour and possible wall thickening. Findings may be related to acute cholecystitis. Clinical correlation is recommended. There is diverticulosis. CT was performed with one or more following dose reduction techniques: automated exposure control, adjustment of the mA and kv according to patient's size, or use of a iterative reconstruction technique. DICTATED BY: JUSTINE THAKUR MD DATE: 01/23/25 153 ELECTRONICALLY SIGNED BY: JUSTINE THAKUR MD DATE: 01/23/[address] [address] IMAGING REPORT Signed PATIENT: TULIO DENSON MR#: [id number] : 1975 SEX: M AGE: 49 LOCATION: [facility] ORDER 13 STATUS: ADM IN REPORT#: [id number] SERVICE 10 REASON: RUQ pain ORDERING PHYSICIAN: DORCAS SANTANA PROCEDURE: ABDRUQLTD - US ABDOMINAL RUQ\LTD US ABDOMINAL RUQ\E\LTD HISTORY: Right upper quadrant pain COMPARISON: None TECHNIQUE: Right upper quadrant abdominal ultrasound study was performed. FINDINGS: Liver measures 16.2 cm. The visualized portion of the pancreas is within normal limits. Liver is echogenic consistent with liver parenchymal disease. Slight anterior and tiny gallstones are seen within the gallbladder. Common duct measures 3 mm. Gallbladder wall is thick measuring 6 to 9 mm Right kidney measures 11.9 x 6.4 x 4.8 cm. No hydronephrosis is seen of the right kidney. IMPRESSION: 1. Sludge material with tiny gallstones in the gallbladder. No ductal dilatation is seen. Gallbladder wall is thick measuring 6 to 9 mm. 2. No hydronephrosis is seen. DICTATED BY: JUSTINE THAKUR MD DATE: 01/23/251922 ELECTRONICALLY SIGNED BY: JUSTINE THAKUR MD DATE: 01/23/251925 ASSESSMENT: Acute cholecystitis POA Essential hypertension Obesity PLAN: We will continue to monitor the patient in med surge floor. Acute cholecystitis POA Continue IV fluids LR @ 75 ml/hr. Patient will be started on full liquid diet for today and NPO from midnight. WBC count within normal range 7.8 Continue IV Zosyn Q 8 H for empiric coverage. Abdominal ultrasound showed sludge material with tiny gallstones in the gallbladder with no ductal dilation. CT abdomen and pelvis showed gallbladder moderately distended with irregular contour and possible wall thickening. Findings may be related to acute cholecystitis. Surgery consult appreciated and we will follow their recommendations. Plan is for possible robotic cholecystectomy tomorrow. Essential hypertension His blood pressure is under control. We will hold his home medication losartan is the blood pressure is stable until the surgery. Magnesium citrate for constipation. SCDs for DVT prophylaxis Pepcid for GI prophylaxis P.r.n. medications for fever, pain, nausea, constipation ATTESTATION BY PHYSICIAN I have seen and examined the patient. I reviewed the documentation, medical decision making, and treatment plan as noted by the resident provider above. I agree with the findings and plan of care. Gilbert Wolfe MD, KRUPALI P MD January 24, 2025 11:01
[2025-01-24 11:17] LABS: BASOPHILS # (AUTO) 0.03 K/uL (0.00-0.20); BASOPHILS % (AUTO) 0.5 % (0.0-5.0); EOSINOPHILS # (AUTO) 0.12 K/uL (0.00-0.70); EOSINOPHILS % (AUTO) 1.8 % (0.0-8.0); IMMATURE GRANULOCYTE ABSOLUTE 0.03 K/uL (0-1); LYMPHOCYTES # (AUTO) 2.1 K/uL (1.0-4.8); LYMPHOCYTES % (AUTO) 31.8 % (21.0-51.0); MEAN CORPUSCULAR HEMOGLOBIN 26.3 pg (27.0-33.0); MEAN CORPUSCULAR HGB CONC 32.3 g/dL (32.0-36.0); MEAN CORPUSCULAR VOLUME 81.6 fL (79-99); MONOCYTES # (AUTO) 0.6 K/uL (0.1-1.0); NEUTROPHILS # (AUTO) 3.8 K/uL (1.8-7.7); NEUTROPHILS % (AUTO) 56.4 % (40.0-77.0); PLATELET COUNT (AUTO) 234 K/uL (130-400); RED BLOOD CELL COUNT(AUTO) 5.39 MIL/uL (4.50-6.20); RED CELL DISTRIBUTION WIDTH 14.1 % (11.0-15.5); WHITE BLOOD COUNT (AUTO) 6.6 K/uL (4.8-10.8)
[2025-01-24 11:23] LABS: CREATININE 0.9 mg/dL (0.5-1.3); POTASSIUM 4.2 mmol/L (3.5-5.1)
[2025-01-24] MEDS ORDERED: MONT-39 PO (12:26)
[2025-01-24] MEDS ORDERED: LOSA25TA41 PO (12:26)
[2025-01-24] MEDS: MAGNESIUM CITRATE 296 ML SOLUTION PO ONE (12:27)
--- NOTE | 2025-01-24 14:14 | CONS ---
GENERAL SURGERY CONSULTATION NOTE DATE OF CONSULTATION: January 24, 2025 TIME OF CONSULTATION: 14:14 CONSULTING SERVICE: Lottie Watkins MD REQUESTING PHYSICAIN: [ ] REASON FOR CONSULTATION: [ ] HISTORY OF PRESENT ILLNESS: [ ] PAST MEDICAL HISTORY: [ ] PAST SURGICAL HISTORY: [ ] FAMILY HISTORY: [ ] SOCIAL HISTORY: [ ] Current Medications Medications (Trade) Dose Ordered Sig/Margarito Route Start Time Stop Time Status Last Admin Dose Admin Famotidine (Pepcid 20mg Vial) 20 mg BID IV 01/23/25 21:00 02/22/25 20:59 01/23/25 21:31 20 MG Lactated Ringer's 1,000 ml @ 75 mls/hr [id number] IV 01/23/25 17:30 02/22/25 17:29 01/23/25 17:51 75 MLS/HR Piperacillin Sod/ Tazobactam Sod 50 ml @ 12.5 mls/hr Q8H IV 01/23/25 21:00 02/02/25 20:59 01/23/25 21:30 12.5 MLS/HR Allergies: Coded Allergies: No Known Allergies (Unverified Allergy, Unknown, 02/23/19) REVIEW OF SYSTEMS: PNEUDRAULIC SYSTEMS MECHANIC: [Denies headaches or blurring of vision.] RESP: [No cough, chest pain or SOB.] CVS: [No palpitaions.] GI: [abdominal pain with nausea and vomiting, no diarrhea or constipation.] ANAYELI: [No dysuria or hematuria.] Musculoskeletal: [No swelling or joint pain.] BACK: [No pain or swelling.] All other systems are reviewed and essentially negative pertinent positives in HPI. PHYSICAL EXAMINATION: GENERAL: [Patient is lying comfortably in bed, not in any obvious distress.] HEAD: [Normal with no signs of head trauma.] EYES: [Not pale not jaundiced afebrile to touch.] ENT: [ Normal.] NECK: [Supple,no tenderness,no lymphadenopathy,no masses,no thyromegaly ,no bruits, no JVD.] LUNGS: [Clear breath sounds bilaterally. No wheezes, rales, or rhonchi.] HEART: [Regular rate and rhythm. Normal S1 and S2, without murmurs, rub or gallop.] VASC: [No edema. Peripheral pulses normal and equal in all extremities.] ABD: [Bowel sounds present,soft, RUQ tender, no masses, no organomegaly.] : [Normal, no suprapubic tenderness.] LYMPH: [No lymphadenopathy noted.] EXT: [ Warm soft, non tender.] SKIN: [ No rashes or lesions.] NEURO: [ Awake Alert and oriented x3.] Vital Signs (last 8hr) Date Time Temp Pulse Resp B/P (MAP) Pulse Ox O2 Delivery O2 Flow Rate FiO2 01/24/25 12:00 97.9 67 16 121/81 98 01/24/25 09:29 99.0 74 18 114/75 98 01/24/25 09:04 98 Room Air* 0 21 LABORATORY: [ ] Hematology Labs: Test 01/24/25 11:11 Range/Units White Blood Count 6.6 4.8-10.8 K/uL Red Blood Count 5.39 4.50-6.20 MIL/uL Hemoglobin 14.2 14.0-18.0 g/dL Hematocrit 44.0 42-54 % Mean Corpuscular Volume 81.6 79-99 fL Mean Corpuscular Hemoglobin 26.3 L 27.0-33.0 pg Mean Corpuscular Hemoglobin Concent 32.3 32.0-36.0 g/dL Red Cell Distribution Width 14.1 11.0-15.5 % Platelet Count 234 130-400 K/uL Mean Platelet Volume 9.1 7.5-10.5 fL Immature Granulocyte % (Auto) 0.5 0-1 % Neutrophils (%) (Auto) 56.4 40.0-77.0 % Lymphocytes (%) (Auto) 31.8 21.0-51.0 % Monocytes (%) (Auto) 9.0 3.0-13.0 % Eosinophils (%) (Auto) 1.8 0.0-8.0 % Basophils (%) (Auto) 0.5 0.0-5.0 % Neutrophils # (Auto) 3.8 1.8-7.7 K/uL Lymphocytes # (Auto) 2.1 1.0-4.8 K/uL Monocytes # (Auto) 0.6 0.1-1.0 K/uL Eosinophils # (Auto) 0.12 0.00-0.70 K/uL Basophils # (Auto) 0.03 0.00-0.20 K/uL Absolute Immature Granulocyte (auto 0.03 0-1 K/uL Nucleated Red Blood Cells 0.0 0.0-0.19 % Chemistry Labs: Test 01/24/25 11:11 01/23/25 12:32 Range/Units Sodium Level 139 136-145 mmol/L Potassium Level 4.2 3.5-5.1 mmol/L Chloride Level 104 101-111 mmol/L Carbon Dioxide Level 30 21-32 mmol/L Blood Urea Nitrogen 19 H 7-18 mg/dL Creatinine 0.9 0.5-1.3 mg/dL Glomerular Filtration Rate Calc 105 >90 mL/min Random Glucose 88 70-105 mg/dL Total Calcium 8.8 8.5-10.1 mg/dL Total Bilirubin 0.3 0.2-1.0 mg/dL Direct Bilirubin 0.1 0.0-0.3 mg/dL Aspartate Amino Transf (AST/SGOT) 13 10-37 U/L Alanine Aminotransferase (ALT/SGPT) 21 12-78 U/L Alkaline Phosphatase 87 50-136 U/L Total Protein 7.3 6.0-8.3 g/dL Albumin 3.8 3.5-5.0 g/dL Lipase 58 16-77 U/L DIAGNOSTICS / RADIOLOGY: [Copy/Paste Echos/Imaging Report here] ASSESSMENT: [] PLAN: [] NPO/IVF/IV ANTIOBIOTICS Schedule for OR We talked about various treatment options including but not limited to surgery. We talked about risks and benefits of surgery, patient verbalized understanding has agreed to proceed [ ]. We will schedule [ ]. LOTTIE WATKINS MD January 24, 2025 14:14
--- NOTE | 2025-01-24 14:39 | NUR ---
DCP Pt awake, alert, oriented x3 lives with Chelsy Naranjo [phone]. PCP is Brenton Chicas. Pt states he is independent, does not have any DME, has not had home health, or been to residential facility. Anticipates discharge is home with Chelsy Naranjo. Addendum: 01/24/25 at 1446 by BRIELLE CHAN RN CM Amended: Links added.
[2025-01-24] MEDS: acetaMINOPHEN 325 MG TAB PO PRN (21:39)
[2025-01-25] VITALS (29 sets, daily range): BP systolic 95–153; BP diastolic 64–88; PULSE 60–109; RESP 14–20; TEMP 97.3–98.3; O2SAT 94–95
[2025-01-25 04:10] LABS: BASOPHILS # (AUTO) 0.03 K/uL (0.00-0.20); BASOPHILS % (AUTO) 0.5 % (0.0-5.0); EOSINOPHILS # (AUTO) 0.15 K/uL (0.00-0.70); EOSINOPHILS % (AUTO) 2.4 % (0.0-8.0); HEMATOCRIT 44.7 % (42-54); IMMATURE GRANULOCYTE ABSOLUTE 0.04 K/uL (0-1); LYMPHOCYTES # (AUTO) 2.1 K/uL (1.0-4.8); LYMPHOCYTES % (AUTO) 33.9 % (21.0-51.0); MEAN CORPUSCULAR HEMOGLOBIN 26.7 pg (27.0-33.0); MEAN CORPUSCULAR HGB CONC 32.4 g/dL (32.0-36.0); MEAN CORPUSCULAR VOLUME 82.2 fL (79-99); MONOCYTES # (AUTO) 0.6 K/uL (0.1-1.0); MONOCYTES % (AUTO) 9.5 % (3.0-13.0); NEUTROPHILS # (AUTO) 3.4 K/uL (1.8-7.7); NEUTROPHILS % (AUTO) 53.1 % (40.0-77.0); PLATELET COUNT (AUTO) 268 K/uL (130-400); RED BLOOD CELL COUNT(AUTO) 5.44 MIL/uL (4.50-6.20); RED CELL DISTRIBUTION WIDTH 13.9 % (11.0-15.5); WHITE BLOOD COUNT (AUTO) 6.3 K/uL (4.8-10.8)
[2025-01-25 04:26] LABS: POTASSIUM 4.1 mmol/L (3.5-5.1)
[2025-01-25] MEDS ORDERED: LIDOCAINE 1%-EPI 1:100,000 20 ML VIAL ONE (07:57)
[2025-01-25] MEDS ORDERED: BUPIvacaine/PF 0.25% 30ML VIAL IJ ONE (07:57)
[2025-01-25] MEDS ORDERED: rocuRONium bROMide 10MG/1ML 5ML VL ONE ×2 (09:36→11:13)
[2025-01-25] MEDS ORDERED: proPOFol 10 MG/ML 20ML VIAL IV ONE (09:36)
[2025-01-25] MEDS ORDERED: LIDOCAINE PF 100MG/5ML (2%) SYRINGE 5ML ONE (09:36)
[2025-01-25] MEDS ORDERED: FENTanyl CITRate PF 50 MCG/1 ML 2ML VIAL ONE (09:37)
[2025-01-25] MEDS: INDOCYANINE GREEN 25 MG VIAL IJ ONE (09:47)
[2025-01-25] MEDS: GABAPENTIN 300 MG CAPSULE ONE (09:52)
[2025-01-25] MEDS: FAMOTIDINE 20MG VIAL IV ONE (09:52)
[2025-01-25] MEDS: acetaMINOPHEN 100 ML ONE (09:52)
[2025-01-25] MEDS ORDERED: ketaMINE 50MG/ML SYRINGE 50 MG/ML DISP.SYRIN ONE (09:55)
[2025-01-25] MEDS ORDERED: ceFAZolin SODIUM 1 GM VIAL ONE (10:01)
[2025-01-25] MEDS ORDERED: dexaMETHasone SOD PHOSPHATE 10MG/ML 1ML VIAL ONE (10:19)
[2025-01-25] MEDS ORDERED: ondanSETRON 4MG INJ ONE (10:19)
[2025-01-25] MEDS ORDERED: NEOSTIGMINE METHYLSULFATE 1MG/ML IV ONE (10:31)
[2025-01-25] MEDS ORDERED: GLYCOPYRROLATE 0.2 MG/ML 5 ML VIAL ONE (10:31)
[2025-01-25] MEDS: ceFAZolin SODIUM 1 GM VIAL IRRIG ONE (10:35)
--- NOTE | 2025-01-25 12:28 | OP ---
OP Procedure: Robotic Maggie OP Procedure Note OPERATIVE PROCEDURE NOTE DATE OF SERVICE: January 25, 2025 PREOPERATIVE DIAGNOSIS: [ ] POSTOPERATIVE DIAGNOSIS: [ ] PROCEDURES PREFORMED: 1. Robotic Cholecystectomy SURGEON: Lottie Watkins MD ANESTHESIA: General. ESTIMATED BLOOD LOSS: Minimal. SPECIMEN(S) REMOVED: Gallbladder. FINDINGS: Very enlarged tense gallbladder moderate right upper quadrant inflammatory adhesions COMPLICATIONS: None. DESCRIPTION OF PROCEDURE: The patient was brought into the Operating Room. After proper identification, the patient was placed on the operating table in the supine position. General anesthesia was then administered and the patient was endotracheally intubated. Attention was then focussed in the area of the abdomen. The same was prepped and draped in the usual sterile fashion. An appropriate time-out was then carried out at this point. Then, I proceeded by making an incision in the infraumbilical region. The incision was carried through skin and subcutaneous tissue until the fascia was identified. The fascia was then carefully incised and the stay stitches were placed on either side of the fascia and the Anton port was then introduced. CO2 was insufflated into the abdomen and the robotic camera was then introduced. Inspection of the abdomen did not show any anterior abdominal wall adhesions. The gallbladder was noted to be enlarged and tense with evidence of moderate right upper quadrant inflammatory adhesions. So at this point, I proceeded by placing the left-sided port and also the right-sided port under vision and my it administrative assistant; port was then placed right-sided lateral. So, at this point, the patient was then placed in slight reverse Trendelenburg position and rotated to his left. The robot was then brought in and then we proceeded by docking the robot with no difficulty. Once the robot was docked and everything looked fine, I proceeded by going into the console area. My it administrative assistant, then grasped the fundus of the gallbladder and the same was retracted cephalad and using the grasper and the robotic [ ], I proceeded by taking down the inflammatory adhesions in the right upper quadrant. At the infundibulum, I proceeded by grasping the infundibulum, I proceeded by carefully opening the peritoneum covering the triangle of Calot and I was able to expose the cystic duct and the cystic artery. Each of these structures were then skeletonized for a distance of about 2 cm and then I proceeded by placing clips; proximal and distal clips on each of these structures. Using the robotic scissors, I proceeded by transecting these 2 structures. The gallbladder was then removed from the gallbladder fossa using the robotic cautery all the way down until I was able to remove it at the fundus as well. Further inspection did not reveal any other pathology. Hemostasis was noted to be adequate. So, at this point, the robot was then undocked. I scrubbed in and the gallbladder was then extracted from the abdomen using an Endopouch. Copious amount of irrigation was carried out at this point. Hemostasis was noted to be adequate. Then, I proceeded by closing the wound. Ports were withdrawn under vision. CO2 was let out of the abdomen. The infraumbilical fascia was approximated together using 0 Vicryl [id number] stitches and the skin was approximated together using 4-0 Monocryl subcuticular closure. Steri-Strips and sterile dressings were then applied. Instrument and sponges count was found correct x2. The patient was then woken up, extubated and taken to Recovery Room in stable condition. The patient tolerated the procedure well. LOTTIE WATKINS MD January 25, 2025 12:28
[2025-01-25] MEDS: hydroMORPHone 1 MG INJ ONE ×2 (12:35→12:46)
[2025-01-25] MEDS: morPHINE 4 MG SYG IV PRN (14:08)
--- NOTE | 2025-01-25 15:23 | PN ---
[facility] PROGRESS NOTE Date of Service: January 25, 2025 Time of Service: 15:15 SUBJECTIVE: 49-year-old male with past medical history of hypertension, obesity, who presented to [facility] ED on 01/23/25 was brought by his spouse for concerns of abdominal pain associated with nausea. Patient reports pain mostly to the epigastric and right upper quadrant region. He reports nausea however no emesis. No chest pain shortness breath fever chills constipation diarrhea or dysuria. Patient states he has had similar episodes in the past, however today's pain was more intense, therefore he decided to come to the hospital for further evaluation. Upon arrival to ED he was noted afebrile, blood pressure 132/97, heart rate 97, respiration rate 16, O2 saturation 98% on room air. Further evaluation labs revealed no worrisome findings. CT a/P showing moderately distended gallbladder with wall thickening consistent with acute cholecystitis. In the ED patient was initiated on IVF, IV Protonix, given doses of IV morphine, and IM Toradol for pain control. Patient was admitted for further evaluation. Surgery consult was placed. 01/24/25 patient was seen and evaluated today morning. His family at the bedside. He had a mild right upper quadrant pain but it was tolerated as per the patient. He denies nausea and vomiting today. CT abdomen and pelvis showed gallbladder moderately distended with irregular contour possible wall thickening. Findings may be related to acute cholecystitis. Abdominal ultrasound showed sludge material with tiny gallstones in the gallbladder with no ductal dilation. Patient's last bowel movement was yesterday. Surgery recommended magnesium citrate for bowel patient and put him on full liquid diet for today and NPO from midnight. Plan is for possible robotic cholecystectomy tomorrow morning. 01/25/25 the patient was taken down in OR for surgery today morning. Patient underwent robotic cholecystectomy performed by . Patient has a RADHA drain. Patient was evaluated after when he got back from surgery in afternoon. Patient was in deep sleep when seen. His CBC and CMP are unremarkable. Patient was started on liquid diet and we will gradually advance as tolerated. We will wait for surgical clearance for discharge. REVIEW OF SYSTEMS CONSTITUTIONAL: Denies fevers, chills, or night sweats. No unintentional weight loss reported. CARDIOVASCULAR: Denies any exertional angina, dyspnea on exertion, orthopnea, paroxysmal nocturnal dyspnea, palpitations, life-threatening arrhythmias, claudication. PULMONARY: Denies any shortness of breath, cough, phlegm/sputum, hemoptysis, pleuritic chest pain. SLEEP: Denies morning headaches, daytime somnolence or napping. Denies difficulty falling asleep, staying asleep, waking from sleep. Denies knowledge of snoring. GASTROINTESTINAL: Mild right upper quadrant pain with mild tenderness. Nausea resolved. GENITOURINARY: Denies frequency, urgency, nocturia, hematuria or incontinence (Storage/Irritative symptoms.) Low urinary stream, straining to void, urinary intermittency or hesitancy, splitting of the voiding stream, terminal dribbling. ENDOCRINOLOGIC: Denies polyuria, polydipsia, polyphagia or heat/cold i ntolerances. ONCOLOGIC: Denies personal history of malignancy. PHYSICAL EXAM GENERAL APPEARANCE: The patient is awake, alert, and oriented, in no acute cardiopulmonary distress. NECK: Supple. No JVD. No thyromegaly. No submental, submandibular, pre-/postauricular, occipital or supraclavicular lymphadenopathy. CHEST: Normal chest expansion. No Telemetry. LUNGS: Absence of any rales, rhonchi or any wheezing. CARDIOVASCULAR: Regular. S1 and S2 normal. No appreciable rubs, murmurs or gallops. ABDOMEN: Soft, bowel sounds positive. Mild Epigastric and RUQ tenderness. No rebound tenderness no guarding no rigidity. Nondistended. : Deferred. No Kenny. EXTREMITIES: Non-edematous and not cyanotic. No clubbing. Good capillary refill. SKIN: No skin breakdown. Vital Signs (last 8hr) Date Time Temp Pulse Resp B/P (MAP) Pulse Ox O2 Delivery O2 Flow Rate FiO2 01/25/25 14:45 97.9 67 16 111/69 96 Nasal Cannula 3.0 01/25/25 14:15 68 16 115/79 95 Room Air 01/25/25 14:00 71 16 95/68 95 Nasal Cannula 3.0 01/25/25 13:45 65 16 96/65 95 Nasal Cannula 3.0 01/25/25 13:30 97.5 65 16 103/68 97 Nasal Cannula 3.0 01/25/25 13:25 97.3 74 15 111/64 97 Nasal Cannula 3.0 28 01/25/25 13:20 97.3 75 15 109/66 97 Nasal Cannula 3.0 28 01/25/25 13:15 97.3 68 16 107/68 96 Nasal Cannula 3.0 28 01/25/25 13:10 97.3 66 16 110/69 96 Nasal Cannula 3.0 01/25/25 13:05 97.3 68 16 107/65 95 Nasal Cannula 3.0 01/25/25 13:00 97.3 79 16 119/72 95 Nasal Cannula 3.0 01/25/25 12:55 97.3 71 16 113/65 95 Nasal Cannula 3.0 01/25/25 12:50 97.3 74 18 120/74 95 Nasal Cannula 3.0 01/25/25 12:45 97.3 75 19 135/80 96 Nasal Cannula 3.0 01/25/25 12:40 97.3 86 20 139/78 97 Nasal Cannula 3.0 01/25/25 12:35 97.3 109 20 153/87 97 Nonrebreathing Mask 10.0 100 01/25/25 12:30 97.3 100 17 143/84 97 Nonrebreathing Mask 10.0 100 01/25/25 12:25 97.3 104 18 145/86 97 Nonrebreathing Mask 10.0 100 01/25/25 12:20 97.3 96 14 108/73 92 Nonrebreathing Mask 10.0 100 01/25/25 07:51 98.1 78 17 111/72 93 Room Air LABS: Laboratory: Test 01/25/25 03:40 Range/Units White Blood Count 6.3 4.8-10.8 K/uL Red Blood Count 5.44 4.50-6.20 MIL/uL Hemoglobin 14.5 14.0-18.0 g/dL Hematocrit 44.7 42-54 % Mean Corpuscular Volume 82.2 79-99 fL Mean Corpuscular Hemoglobin 26.7 L 27.0-33.0 pg Mean Corpuscular Hemoglobin Concent 32.4 32.0-36.0 g/dL Red Cell Distribution Width 13.9 11.0-15.5 % Platelet Count 268 130-400 K/uL Mean Platelet Volume 9.6 7.5-10.5 fL Immature Granulocyte % (Auto) 0.6 0-1 % Neutrophils (%) (Auto) 53.1 40.0-77.0 % Lymphocytes (%) (Auto) 33.9 21.0-51.0 % Monocytes (%) (Auto) 9.5 3.0-13.0 % Eosinophils (%) (Auto) 2.4 0.0-8.0 % Basophils (%) (Auto) 0.5 0.0-5.0 % Neutrophils # (Auto) 3.4 1.8-7.7 K/uL Lymphocytes # (Auto) 2.1 1.0-4.8 K/uL Monocytes # (Auto) 0.6 0.1-1.0 K/uL Eosinophils # (Auto) 0.15 0.00-0.70 K/uL Basophils # (Auto) 0.03 0.00-0.20 K/uL Absolute Immature Granulocyte (auto 0.04 0-1 K/uL Nucleated Red Blood Cells 0.0 0.0-0.19 % Sodium Level 140 136-145 mmol/L Potassium Level 4.1 3.5-5.1 mmol/L Chloride Level 104 101-111 mmol/L Carbon Dioxide Level 32 21-32 mmol/L Blood Urea Nitrogen 14 7-18 mg/dL Creatinine 1.0 0.5-1.3 mg/dL Glomerular Filtration Rate Calc 92 >90 mL/min Random Glucose 89 70-105 mg/dL Total Calcium 8.8 8.5-10.1 mg/dL Current Medications Medications (Trade) Dose Ordered Sig/Margarito Route PRN Reason Start Time Stop Time Status Last Admin Dose Admin Acetaminophen (TYLenol 325MG TAB) 650 mg Q4H PRN PO MILD PAIN (1-3) 01/23/25 17:30 02/22/25 17:29 01/24/25 21:39 650 MG Acetaminophen (TYLenol 325MG TAB) 650 mg Q6H PRN PO TEMPERATURE GREATER THAN 101.5 01/23/25 17:30 02/22/25 17:29 Al Hydroxide/Mg Hydroxide (MAALox PLUS 30ML) 30 ml Q6H PRN PO INDIGESTION 01/23/25 17:30 02/22/25 17:29 Diphenhydramine HCl (BENAdryl CAP) 25 mg Q4H PRN PO MILD ITCHING/RASH 01/23/25 17:30 02/22/25 17:29 Famotidine (Pepcid 20mg Vial) 20 mg BID IV 01/23/25 21:00 02/22/25 20:59 01/25/25 09:14 20 MG Guaifenesin/ Dextromethorphan (RobiTUSSin DM 200/20MG 10ML) 10 ml Q4H PRN PO COUGH 01/23/25 17:30 02/22/25 17:29 Hydralazine HCl (APRESOLine 20MG INJ) 10 mg Q6H PRN IV For:SBP above 160;DBP above 90 01/23/25 17:30 02/22/25 17:29 Hydromorphone HCl (DiLAUDid 1MG INJ) 1 mg Q3H3 PRN IVP SEVERE PAIN (7-10) 01/25/25 14:30 01/30/25 14:29 Lactated Ringer's 1,000 ml @ 75 mls/hr [id number] IV 01/23/25 17:30 02/22/25 17:29 01/25/25 14:15 75 MLS/HR Lactulose (Constulose 20gm/ 30ml Udcup) 20 gm BID PRN PO CONSTIPATION 01/23/25 17:30 02/22/25 17:29 Morphine Sulfate (morPHINE 2MG SYG) 2 mg Q4H PRN IV MODERATE PAIN (4-6) 01/23/25 17:30 01/25/25 14:39 DC Morphine Sulfate (morPHINE 4MG SYG) 4 mg Q4H PRN IV SEVERE PAIN (7-10) 01/23/25 17:30 01/25/25 14:39 DC 01/25/25 14:08 4 MG Nitroglycerin (Nitrostat) 0.4 mg PROTOCOL PRN SL CHEST PAIN 01/23/25 17:30 02/22/25 17:29 Ondansetron HCl (zoFRAN 4MG INJ) 4 mg Q6H PRN IV NAUSEA/VOMITING 01/23/25 17:30 02/22/25 17:29 Oxycodone/ Acetaminophen (perCOCET) 1 tab Q4H PRN PO MODERATE PAIN (4-6) 01/25/25 14:30 02/01/25 14:29 Piperacillin Sod/ Tazobactam Sod 50 ml @ 12.5 mls/hr Q8H IV 01/23/25 21:00 02/02/25 20:59 01/25/25 14:15 12.5 MLS/HR DIAGNOSTICS / RADIOLOGY: [facility] [address] [place] [address] IMAGING REPORT Signed PATIENT: TULIO DENSON MR#: [id number] : 1975 SEX: M AGE: 49 LOCATION: [facility] ORDER 1223 STATUS: REG ER REPORT#: [id number] SERVICE 1221 REASON: RUQ, epigastric pain ORDERING PHYSICIAN: NAYE ALFREDO PROCEDURE: ABD PEL W - CT ABDOMEN/PELVIS W/CONTRAST CT ABDOMEN/PELVIS W/CONTRAST HISTORY: Epigastric pain COMPARISON: 04/10/2019 TECHNIQUE: Multiple sequential axial images of the abdomen and pelvis were obtained from the dome of the diaphragm through symphysis pubis. Patient was not given contrast through intravenous route. Oral contrast was not given. FINDINGS: No pleural effusion is seen bilaterally. There is no evidence of parenchymal disease or pulmonary nodule of the visualized lower lungs. Degenerative changes of the thoracolumbar spine are present. The heart is not enlarged. Gallbladder is moderately distended with irregular contour and possible wall thickening. Findings may be related to acute cholecystitis. Clinical correlation is recommended. There is diverticulosis. The liver, spleen, adrenal glands and pancreas are unremarkable. There is no evidence of hydronephrosis bilaterally. No evidence of renal stone is seen. Fecal material is seen in the colon. There are normal size retroperitoneal and mesenteric lymph nodes. No ascites is seen. No CT evidence of acute appendicitis is seen. Clinical correlation is Pelvic sidewalls are symmetric bilaterally. Bladder is poorly distended. IMPRESSION: 1. Gallbladder is moderately distended with irregular contour and possible wall thickening. Findings may be related to acute cholecystitis. Clinical correlation is recommended. There is diverticulosis. CT was performed with one or more following dose reduction techniques: automated exposure control, adjustment of the mA and kv according to patient's size, or use of a iterative reconstruction technique. DICTATED BY: JUSTINE THAKUR MD DATE: 01/23/25 1535 ELECTRONICALLY SIGNED BY: JUSTINE THAKUR MD DATE: 01/23/25 1655 [facility] [address] [place], [place] [address] IMAGING REPORT Signed PATIENT: TULIO DENSON MR#: [id number] : 1975 SEX: M AGE: 49 LOCATION: [facility] ORDER 13 STATUS: ADM IN REPORT#: [id number] SERVICE 10 REASON: RUQ pain ORDERING PHYSICIAN: DORCAS SANTANA PROCEDURE: [id number] - US ABDOMINAL RUQ\LTD US ABDOMINAL RUQ\E\LTD HISTORY: Right upper quadrant pain COMPARISON: None TECHNIQUE: Right upper quadrant abdominal ultrasound study was performed. FINDINGS: Liver measures 16.2 cm. The visualized portion of the pancreas is within normal limits. Liver is echogenic consistent with liver parenchymal disease. Slight anterior and tiny gallstones are seen within the gallbladder. Common duct measures 3 mm. Gallbladder wall is thick measuring 6 to 9 mm Right kidney measures 11.9 x 6.4 x 4.8 cm. No hydronephrosis is seen of the right kidney. IMPRESSION: 1. Sludge material with tiny gallstones in the gallbladder. No ductal dilatation is seen. Gallbladder wall is thick measuring 6 to 9 mm. 2. No hydronephrosis is seen. DICTATED BY: JUSTINE THAKUR MD DATE: 01/23/251922 ELECTRONICALLY SIGNED BY: JUSTINE THAKUR MD DATE: 01/23/251925 ASSESSMENT: Status post robotic cholecystectomy 01/25/25 Acute cholecystitis POA Essential hypertension Obesity PLAN: We will continue to monitor [facility]. Status post robotic cholecystectomy 01/25/25 Patient underwent robotic cholecystectomy performed by today. No complications. Continue IV fluids LR @ 75 ml/hr. Discontinue IV fluids after his starts diet. Patient started on full liquid diet and we will advance gradually as tolerated. Acute cholecystitis POA Patient started on full liquid diet and we will advance gradually as tolerated. WBC count within normal range Continue IV Zosyn Q 8 H for empiric coverage. Abdominal ultrasound showed sludge material with tiny gallstones in the gallbladder with no ductal dilation. CT abdomen and pelvis showed gallbladder moderately distended with irregular contour and possible wall thickening. Findings may be related to acute cholecystitis. Essential hypertension We will resume his home medication losartan. SCDs for DVT prophylaxis Pepcid for GI prophylaxis P.r.n. medications for fever, pain, nausea, constipation Plan : Patient had robotic cholecystectomy today and has RADHA drain. Started on full liquid diet and we will advance gradually as tolerated. Pending clearance from General surgery for discharge. ATTESTATION BY PHYSICIAN I have seen and examined the patient. I reviewed the documentation, medical decision making, and treatment plan as noted by the resident provider above. I agree with the findings and plan of care. Gilbert Wolfe MD, KRUPALI P MD January 25, 2025 15:23
[2025-01-25] MEDS: hydroMORPHone 1 MG INJ IVP PRN (17:25)
[2025-01-25] MEDS: guaiFENesin-DM 200/20MG 10ML PO PRN (23:33)
[2025-01-26 00:29] VITALS: BP 135/92; PULSE 110; RESP 18; TEMP 98.2
[2025-01-26 04:32] VITALS: BP 126/82; PULSE 101; RESP 18; TEMP 98.5
[2025-01-26 06:07] LABS: BASOPHILS # (AUTO) 0.01 K/uL (0.00-0.20); BASOPHILS % (AUTO) 0.1 % (0.0-5.0); HEMATOCRIT 43.2 % (42-54); IMMATURE GRANULOCYTE ABSOLUTE 0.07 K/uL (0-1); LYMPHOCYTES # (AUTO) 1.3 K/uL (1.0-4.8); LYMPHOCYTES % (AUTO) 10.1 % (21.0-51.0); MEAN CORPUSCULAR HEMOGLOBIN 26.6 pg (27.0-33.0); MEAN CORPUSCULAR HGB CONC 32.9 g/dL (32.0-36.0); MEAN CORPUSCULAR VOLUME 80.9 fL (79-99); MONOCYTES # (AUTO) 1.1 K/uL (0.1-1.0); MONOCYTES % (AUTO) 8.3 % (3.0-13.0); NEUTROPHILS # (AUTO) 10.6 K/uL (1.8-7.7); PLATELET COUNT (AUTO) 250 K/uL (130-400); RED BLOOD CELL COUNT(AUTO) 5.34 MIL/uL (4.50-6.20); RED CELL DISTRIBUTION WIDTH 13.7 % (11.0-15.5); WHITE BLOOD COUNT (AUTO) 13.1 K/uL (4.8-10.8)
[2025-01-26 06:19] LABS: ALBUMIN 3.3 g/dL (3.5-5.0); BILIRUBIN,TOTAL 0.6 mg/dL (0.2-1.0); CREATININE 1.1 mg/dL (0.5-1.3); POTASSIUM 4.3 mmol/L (3.5-5.1); TOTAL PROTEIN, SERUM 6.7 g/dL (6.0-8.3)
[2025-01-26 08:00] VITALS: BP 120/81; PULSE 100; RESP 20; TEMP 98.3; O2SAT 94
[2025-01-26] MEDS: monteLUKAST sodIUM 10 MG TAB PO SCH (08:09)
[2025-01-26] MEDS: oxyCODONE/aceTAMIN 5/325MG TAB PO PRN (08:09)
[2025-01-26] MEDS: LoSARTan 25 MG TABLET PO SCH (09:00)
[2025-01-26 11:54] VITALS: BP 116/74; PULSE 101; RESP 20; TEMP 98.9
[2025-01-26 16:00] VITALS: BP 111/75; PULSE 101; RESP 20; TEMP 98.4
--- NOTE | 2025-01-26 16:21 | DS ---
Discharge Summary Hospital Course Summary: 49-year-old male with past medical history of hypertension, obesity, who presented to [facility] ED on 01/23/25 was brought by his spouse for concerns of abdominal pain associated with nausea. She was diagnosed with the acute cholecystitis and General surgery was consulted. Patient underwent laparoscopic cholecystectomy and did postoperatively well which she was ambulating and tolerating diet. 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
--- NOTE | 2025-01-26 16:34 | PN ---
[facility] PROGRESS NOTE Date of Service: January 26, 2025 Time of Service: 16:33 SUBJECTIVE: 49-year-old male with past medical history of hypertension, obesity, who presented to [facility] ED on 01/23/25 was brought by his spouse for concerns of abdominal pain associated with nausea. Patient reports pain mostly to the epigastric and right upper quadrant region. He reports nausea however no emesis. No chest pain shortness breath fever chills constipation diarrhea or dysuria. Patient states he has had similar episodes in the past, however today's pain was more intense, therefore he decided to come to the hospital for further evaluation. Upon arrival to ED he was noted afebrile, blood pressure 132/97, heart rate 97, respiration rate 16, O2 saturation 98% on room air. Further evaluation labs revealed no worrisome findings. CT a/P showing moderately distended gallbladder with wall thickening consistent with acute cholecystitis. In the ED patient was initiated on IVF, IV Protonix, given doses of IV morphine, and IM Toradol for pain control. Patient was admitted for further evaluation. Surgery consult was placed. 01/24/25 patient was seen and evaluated today morning. His family at the bedside. He had a mild right upper quadrant pain but it was tolerated as per the patient. He denies nausea and vomiting today. CT abdomen and pelvis showed gallbladder moderately distended with irregular contour possible wall thickening. Findings may be related to acute cholecystitis. Abdominal ultrasound showed sludge material with tiny gallstones in the gallbladder with no ductal dilation. Patient's last bowel movement was yesterday. Surgery recommended magnesium citrate for bowel patient and put him on full liquid diet for today and NPO from midnight. Plan is for possible robotic cholecystectomy tomorrow morning. 01/25/25 the patient was taken down in OR for surgery today morning. Patient underwent robotic cholecystectomy performed by . Patient has a RADHA drain. Patient was evaluated after when he got back from surgery in afternoon. Patient was in deep sleep when seen. His CBC and CMP are unremarkable. Patient was started on liquid diet and we will gradually advance as tolerated. We will wait for surgical clearance for discharge. 01/26/25 patient was seen and examined. Case discussed with RN patient was doing well postoperatively we will advance diet and activity. Infectious Disease wants one more day of antibiotics in the hospital. Continue we will consider discharging tomorrow REVIEW OF SYSTEMS CONSTITUTIONAL: Denies fevers, chills, or night sweats. No unintentional weight loss reported. CARDIOVASCULAR: Denies any exertional angina, dyspnea on exertion, orthopnea, paroxysmal nocturnal dyspnea, palpitations, life-threatening arrhythmias, claudication. PULMONARY: Denies any shortness of breath, cough, phlegm/sputum, hemoptysis, pleuritic chest pain. SLEEP: Denies morning headaches, daytime somnolence or napping. Denies difficulty falling asleep, staying asleep, waking from sleep. Denies knowledge of snoring. GASTROINTESTINAL: Mild right upper quadrant pain with mild tenderness. Nausea resolved. GENITOURINARY: Denies frequency, urgency, nocturia, hematuria or incontinence (Storage/Irritative symptoms.) Low urinary stream, straining to void, urinary intermittency or hesitancy, splitting of the voiding stream, terminal dribbling. ENDOCRINOLOGIC: Denies polyuria, polydipsia, polyphagia or heat/cold i ntolerances. ONCOLOGIC: Denies personal history of malignancy. PHYSICAL EXAM GENERAL APPEARANCE: The patient is awake, alert, and oriented, in no acute cardiopulmonary distress. NECK: Supple. No JVD. No thyromegaly. No submental, submandibular, pre-/postauricular, occipital or supraclavicular lymphadenopathy. CHEST: Normal chest expansion. No Telemetry. LUNGS: Absence of any rales, rhonchi or any wheezing. CARDIOVASCULAR: Regular. S1 and S2 normal. No appreciable rubs, murmurs or gallops. ABDOMEN: Soft, bowel sounds positive. Mild Epigastric and RUQ tenderness. No rebound tenderness no guarding no rigidity. Nondistended. : Deferred. No Kenny. EXTREMITIES: Non-edematous and not cyanotic. No clubbing. Good capillary refill. SKIN: No skin breakdown. Vital Signs (last 8hr) Date Time Temp Pulse Resp B/P (MAP) Pulse Ox O2 Delivery O2 Flow Rate FiO2 01/26/25 16:00 98.4 101 20 111/75 96 Nasal Cannula 2.0 01/26/25 11:54 99.0 101 20 116/74 92 Room Air 21 LABS: Laboratory: Test 01/26/25 06:00 Range/Units White Blood Count 13.1 H 4.8-10.8 K/uL Red Blood Count 5.34 4.50-6.20 MIL/uL Hemoglobin 14.2 14.0-18.0 g/dL Hematocrit 43.2 42-54 % Mean Corpuscular Volume 80.9 79-99 fL Mean Corpuscular Hemoglobin 26.6 L 27.0-33.0 pg Mean Corpuscular Hemoglobin Concent 32.9 32.0-36.0 g/dL Red Cell Distribution Width 13.7 11.0-15.5 % Platelet Count 250 130-400 K/uL Mean Platelet Volume 9.0 7.5-10.5 fL Immature Granulocyte % (Auto) 0.5 0-1 % Neutrophils (%) (Auto) 81.0 H 40.0-77.0 % Lymphocytes (%) (Auto) 10.1 L 21.0-51.0 % Monocytes (%) (Auto) 8.3 3.0-13.0 % Eosinophils (%) (Auto) 0.0 0.0-8.0 % Basophils (%) (Auto) 0.1 0.0-5.0 % Neutrophils # (Auto) 10.6 H 1.8-7.7 K/uL Lymphocytes # (Auto) 1.3 1.0-4.8 K/uL Monocytes # (Auto) 1.1 H 0.1-1.0 K/uL Eosinophils # (Auto) 0.00 0.00-0.70 K/uL Basophils # (Auto) 0.01 0.00-0.20 K/uL Absolute Immature Granulocyte (auto 0.07 0-1 K/uL Nucleated Red Blood Cells 0.0 0.0-0.19 % Sodium Level 134 L 136-145 mmol/L Potassium Level 4.3 3.5-5.1 mmol/L Chloride Level 101 101-111 mmol/L Carbon Dioxide Level 28 21-32 mmol/L Blood Urea Nitrogen 13 7-18 mg/dL Creatinine 1.1 0.5-1.3 mg/dL Glomerular Filtration Rate Calc 82 >90 mL/min Random Glucose 120 H 70-105 mg/dL Total Calcium 8.7 8.5-10.1 mg/dL Total Bilirubin 0.6 0.2-1.0 mg/dL Aspartate Amino Transf (AST/SGOT) 46 H 10-37 U/L Alanine Aminotransferase (ALT/SGPT) 77 12-78 U/L Alkaline Phosphatase 94 50-136 U/L Total Protein 6.7 6.0-8.3 g/dL Albumin 3.3 L 3.5-5.0 g/dL Current Medications Medications (Trade) Dose Ordered Sig/Margarito Route PRN Reason Start Time Stop Time Status Last Admin Dose Admin Acetaminophen (TYLenol 325MG TAB) 650 mg Q4H PRN PO MILD PAIN (1-3) 01/23/25 17:30 02/22/25 17:01/24/25 21:39 650 MG Acetaminophen (TYLenol 325MG TAB) 650 mg Q6H PRN PO TEMPERATURE GREATER THAN 101.5 01/23/25 17:30 02/22/25 17:29 Al Hydroxide/Mg Hydroxide (MAALox PLUS 30ML) 30 ml Q6H PRN PO INDIGESTION 01/23/25 17:30 02/22/25 17:29 Diphenhydramine HCl (BENAdryl CAP) 25 mg Q4H PRN PO MILD ITCHING/RASH 01/23/25 17:30 02/22/25 17:29 Famotidine (Pepcid 20mg Vial) 20 mg BID IV 01/23/25 21:00 02/22/25 20:59 01/26/25 08:09 20 MG Guaifenesin/ Dextromethorphan (RobiTUSSin DM 200/20MG 10ML) 10 ml Q4H PRN PO COUGH 01/23/25 17:30 02/22/25 17:29 01/25/25 23:33 10 ML Hydralazine HCl (APRESOLine 20MG INJ) 10 mg Q6H PRN IV For:SBP above 160;DBP above 90 01/23/25 17:30 02/22/25 17:29 Hydromorphone HCl (DiLAUDid 1MG INJ) 1 mg Q3H3 PRN IVP SEVERE PAIN (7-10) 01/25/25 14:30 01/30/25 14:29 01/26/25 11:16 1 MG Lactated Ringer's 1,000 ml @ 75 mls/hr [id number] IV 01/23/25 17:30 02/22/25 17:29 01/26/25 13:23 75 MLS/HR Lactulose (Constulose 20gm/ 30ml Udcup) 20 gm BID PRN PO CONSTIPATION 01/23/25 17:30 02/22/25 17:29 Losartan Potassium (CozAAR 25MG TAB) 25 mg DAILY PO 01/26/25 09:00 02/25/25 08:59 Montelukast Sodium (SinguLAIR) 10 mg DAILY PO 01/26/25 09:00 02/25/25 08:59 01/26/25 08:09 10 MG Morphine Sulfate (morPHINE 2MG SYG) 2 mg Q4H PRN IV MODERATE PAIN (4-6) 01/23/25 17:30 01/25/25 14:39 DC Morphine Sulfate (morPHINE 4MG SYG) 4 mg Q4H PRN IV SEVERE PAIN (7-10) 01/23/25 17:30 01/25/25 14:39 DC 01/25/25 14:08 4 MG Nitroglycerin (Nitrostat) 0.4 mg PROTOCOL PRN SL CHEST PAIN 01/23/25 17:30 02/22/25 17:29 Ondansetron HCl (zoFRAN 4MG INJ) 4 mg Q6H PRN IV NAUSEA/VOMITING 01/23/25 17:30 02/22/25 17:29 Oxycodone/ Acetaminophen (perCOCET) 1 tab Q4H PRN PO MODERATE PAIN (4-6) 01/25/25 14:30 02/01/25 14:29 01/26/25 08:09 1 TAB Piperacillin Sod/ Tazobactam Sod 50 ml @ 12.5 mls/hr Q8H IV 01/23/25 21:00 02/02/25 20:59 01/26/25 13:23 12.5 MLS/HR Simethicone (Mylicon) 80 mg TIDP PRN PO GI GAS 01/26/25 16:30 02/25/25 16:29 DIAGNOSTICS / RADIOLOGY: [ ] ASSESSMENT: Status post robotic cholecystectomy 01/25/25 Acute cholecystitis POA Essential hypertension Obesity PLAN: Patient was discharged in stable medical condition AIME GRANGER MD January 26, 2025 16:34
[2025-01-26] MEDS: SIMETHICONE 80 MG TAB.CHEW PO PRN (17:25)
[2025-01-26 20:00] VITALS: BP 122/82; PULSE 107; RESP 20; TEMP 98.1; O2SAT 94
[2025-01-27] VITALS (7 sets, daily range): BP systolic 113–125; BP diastolic 73–85; PULSE 80–94; RESP 17–20; TEMP 97.8–98.8; O2SAT 93–96
[2025-01-27] MEDS: MAGNESIUM CITRATE 296 ML SOLUTION PO ONE (13:41)
--- NOTE | 2025-01-27 14:05 | PN ---
[facility] PROGRESS NOTE Date of Service: January 27, 2025 Time of Service: 14:04 SUBJECTIVE: 49-year-old male with past medical history of hypertension, obesity, who presented to [facility] ED on 01/23/25 was brought by his spouse for concerns of abdominal pain associated with nausea. Patient reports pain mostly to the epigastric and right upper quadrant region. He reports nausea however no emesis. No chest pain shortness breath fever chills constipation diarrhea or dysuria. Patient states he has had similar episodes in the past, however today's pain was more intense, therefore he decided to come to the hospital for further evaluation. Upon arrival to ED he was noted afebrile, blood pressure 132/97, heart rate 97, respiration rate 16, O2 saturation 98% on room air. Further evaluation labs revealed no worrisome findings. CT a/P showing moderately distended gallbladder with wall thickening consistent with acute cholecystitis. In the ED patient was initiated on IVF, IV Protonix, given doses of IV morphine, and IM Toradol for pain control. Patient was admitted for further evaluation. Surgery consult was placed. 01/24/25 patient was seen and evaluated today morning. His family at the bedside. He had a mild right upper quadrant pain but it was tolerated as per the patient. He denies nausea and vomiting today. CT abdomen and pelvis showed gallbladder moderately distended with irregular contour possible wall thickening. Findings may be related to acute cholecystitis. Abdominal ultrasound showed sludge material with tiny gallstones in the gallbladder with no ductal dilation. Patient's last bowel movement was yesterday. Surgery recommended magnesium citrate for bowel patient and put him on full liquid diet for today and NPO from midnight. Plan is for possible robotic cholecystectomy tomorrow morning. 01/25/25 the patient was taken down in OR for surgery today morning. Patient underwent robotic cholecystectomy performed by . Patient has a RADHA drain. Patient was evaluated after when he got back from surgery in afternoon. Patient was in deep sleep when seen. His CBC and CMP are unremarkable. Patient was started on liquid diet and we will gradually advance as tolerated. We will wait for surgical clearance for discharge. 01/26/25 patient was seen and examined. Case discussed with RN patient was doing well postoperatively we will advance diet and activity. Infectious Disease wants one more day of antibiotics in the hospital. Continue we will consider discharging tomorrow 01/27/25 patient seen and examined. Case discussed with the RN. Patient reports abdominal pain. Otherwise he is doing well. Discussed with family by the bedside. Likely discharge later today if surgical clearance is obtained or tomorrow REVIEW OF SYSTEMS CONSTITUTIONAL: Denies fevers, chills, or night sweats. No unintentional weight loss reported. CARDIOVASCULAR: Denies any exertional angina, dyspnea on exertion, orthopnea, paroxysmal nocturnal dyspnea, palpitations, life-threatening arrhythmias, claudication. PULMONARY: Denies any shortness of breath, cough, phlegm/sputum, hemoptysis, pleuritic chest pain. SLEEP: Denies morning headaches, daytime somnolence or napping. Denies difficulty falling asleep, staying asleep, waking from sleep. Denies knowledge of snoring. GASTROINTESTINAL: Mild right upper quadrant pain with mild tenderness. Nausea resolved. GENITOURINARY: Denies frequency, urgency, nocturia, hematuria or incontinence (Storage/Irritative symptoms.) Low urinary stream, straining to void, urinary intermittency or hesitancy, splitting of the voiding stream, terminal dribbling. ENDOCRINOLOGIC: Denies polyuria, polydipsia, polyphagia or heat/cold intolerances. ONCOLOGIC: Denies personal history of malignancy. PHYSICAL EXAM GENERAL APPEARANCE: The patient is awake, alert, and oriented, in no acute cardiopulmonary distress. NECK: Supple. No JVD. No thyromegaly. No submental, submandibular, pre- /postauricular, occipital or supraclavicular lymphadenopathy. CHEST: Normal chest expansion. No Telemetry. LUNGS: Absence of any rales, rhonchi or any wheezing. CARDIOVASCULAR: Regular. S1 and S2 normal. No appreciable rubs, murmurs or gallops. ABDOMEN: Soft, bowel sounds positive. Mild Epigastric and RUQ tenderness. No rebound tenderness no guarding no rigidity. Nondistended. : Deferred. No Kenny. EXTREMITIES: Non-edematous and not cyanotic. No clubbing. Good capillary refill. SKIN: No skin breakdown. Vital Signs (last 8hr) Date Time Temp Pulse Resp B/P (MAP) Pulse Ox O2 Delivery O2 Flow Rate FiO2 01/27/25 12:00 98.1 84 18 117/81 92 Room Air 21 01/27/25 08:00 98.2 80 18 113/82 93 Nasal Cannula 2.0 01/27/25 08:00 93 Room Air* 0 21 LABS: Laboratory: Test 01/26/25 06:00 Range/Units White Blood Count 13.1 H 4.8-10.8 K/uL Red Blood Count 5.34 4.50-6.20 MIL/uL Hemoglobin 14.2 14.0-18.0 g/dL Hematocrit 43.2 42-54 % Mean Corpuscular Volume 80.9 79-99 fL Mean Corpuscular Hemoglobin 26.6 L 27.0-33.0 pg Mean Corpuscular Hemoglobin Concent 32.9 32.0-36.0 g/dL Red Cell Distribution Width 13.7 11.0-15.5 % Platelet Count 250 130-400 K/uL Mean Platelet Volume 9.0 7.5-10.5 fL Immature Granulocyte % (Auto) 0.5 0-1 % Neutrophils (%) (Auto) 81.0 H 40.0-77.0 % Lymphocytes (%) (Auto) 10.1 L 21.0-51.0 % Monocytes (%) (Auto) 8.3 3.0-13.0 % Eosinophils (%) (Auto) 0.0 0.0-8.0 % Basophils (%) (Auto) 0.1 0.0-5.0 % Neutrophils # (Auto) 10.6 H 1.8-7.7 K/uL Lymphocytes # (Auto) 1.3 1.0-4.8 K/uL Monocytes # (Auto) 1.1 H 0.1-1.0 K/uL Eosinophils # (Auto) 0.00 0.00-0.70 K/uL Basophils # (Auto) 0.01 0.00-0.20 K/uL Absolute Immature Granulocyte (auto 0.07 0-1 K/uL Nucleated Red Blood Cells 0.0 0.0-0.19 % Sodium Level 134 L 136-145 mmol/L Potassium Level 4.3 3.5-5.1 mmol/L Chloride Level 101 101-111 mmol/L Carbon Dioxide Level 28 21-32 mmol/L Blood Urea Nitrogen 13 7-18 mg/dL Creatinine 1.1 0.5-1.3 mg/dL Glomerular Filtration Rate Calc 82 >90 mL/min Random Glucose 120 H 70-105 mg/dL Total Calcium 8.7 8.5-10.1 mg/dL Total Bilirubin 0.6 0.2-1.0 mg/dL Aspartate Amino Transf (AST/SGOT) 46 H 10-37 U/L Alanine Aminotransferase (ALT/SGPT) 77 12-78 U/L Alkaline Phosphatase 94 50-136 U/L Total Protein 6.7 6.0-8.3 g/dL Albumin 3.3 L 3.5-5.0 g/dL Current Medications Medications (Trade) Dose Ordered Sig/Margarito Route PRN Reason Start Time Stop Time Status Last Admin Dose Admin Acetaminophen (TYLenol 325MG TAB) 650 mg Q4H PRN PO MILD PAIN (1-3) 01/23/25 17:30 02/22/25 17:29 01/24/25 21:39 650 MG Acetaminophen (TYLenol 325MG TAB) 650 mg Q6H PRN PO TEMPERATURE GREATER THAN 101.5 01/23/25 17:30 02/22/25 17:29 Al Hydroxide/Mg Hydroxide (MAALox PLUS 30ML) 30 ml Q6H PRN PO INDIGESTION 01/23/25 17:30 02/22/25 17:29 Diphenhydramine HCl (BENAdryl CAP) 25 mg Q4H PRN PO MILD ITCHING/RASH 01/23/25 17:30 02/22/25 17:29 Famotidine (Pepcid 20mg Vial) 20 mg BID IV 01/23/25 21:00 02/22/25 20:59 01/27/25 08:08 20 MG Guaifenesin/ Dextromethorphan (RobiTUSSin DM 200/20MG 10ML) 10 ml Q4H PRN PO COUGH 01/23/25 17:30 02/22/25 17:29 01/25/25 23:33 10 ML Hydralazine HCl (APRESOLine 20MG INJ) 10 mg Q6H PRN IV For:SBP above 160;DBP above 90 01/23/25 17:30 02/22/25 17:29 Hydromorphone HCl (DiLAUDid 1MG INJ) 1 mg Q3H3 PRN IVP SEVERE PAIN (7-10) 01/25/25 14:30 01/30/25 14:29 01/27/25 02:26 1 MG Lactated Ringer's 1,000 ml @ 75 mls/hr [id number] IV 01/23/25 17:30 02/22/25 17:29 01/26/25 20:18 75 MLS/HR Lactulose (Constulose 20gm/ 30ml Udcup) 20 gm BID PRN PO CONSTIPATION 01/23/25 17:30 02/22/25 17:29 Losartan Potassium (CozAAR 25MG TAB) 25 mg DAILY PO 01/26/25 09:00 02/25/25 08:59 01/27/25 08:08 25 MG Montelukast Sodium (SinguLAIR) 10 mg DAILY PO 01/26/25 09:00 02/25/25 08:59 01/27/25 08:08 10 MG Morphine Sulfate (morPHINE 2MG SYG) 2 mg Q4H PRN IV MODERATE PAIN (4-6) 01/23/25 17:30 01/25/25 14:39 DC Morphine Sulfate (morPHINE 4MG SYG) 4 mg Q4H PRN IV SEVERE PAIN (7-10) 01/23/25 17:30 01/25/25 14:39 DC 01/25/25 14:08 4 MG Nitroglycerin (Nitrostat) 0.4 mg PROTOCOL PRN SL CHEST PAIN 01/23/25 17:30 02/22/25 17:29 Ondansetron HCl (zoFRAN 4MG INJ) 4 mg Q6H PRN IV NAUSEA/VOMITING 01/23/25 17:30 02/22/25 17:29 Oxycodone/ Acetaminophen (perCOCET) 1 tab Q4H PRN PO MODERATE PAIN (4-6) 01/25/25 14:30 02/01/25 14:29 01/27/25 10:59 1 TAB Piperacillin Sod/ Tazobactam Sod 50 ml @ 12.5 mls/hr Q8H IV 01/23/25 21:00 02/02/25 20:59 01/27/25 12:24 12.5 MLS/HR Simethicone (Mylicon) 80 mg TIDP PRN PO GI GAS 01/26/25 16:30 02/25/25 16:29 01/26/25 17:25 80 MG DIAGNOSTICS / RADIOLOGY: [ ] ASSESSMENT: Status post robotic cholecystectomy 01/25/25 Acute cholecystitis POA Essential hypertension Obesity PLAN: Patient was discharged in stable medical condition AIME GRANGER MD January 27, 2025 14:05
--- NOTE | 2025-01-27 15:42 | PN ---
GENERAL SURGERY PROGRESS NOTE DATE OF SERVICE: January 27, 2025 TIME OF SERVICE: 15:41 PROBLEM LISTS: [ ] INTERVAL HISTORY: [ ] PHYSICAL EXAMINATION: GENERAL: [Patient is lying comfortably in bed, not in any obvious distress.] HEAD: [Normal with no signs of head trauma.] EYES: [Not pale not jaundiced afebrile to touch.] ENT: [ Normal.] NECK: [Supple,no tenderness,no lymphadenopathy,no masses,no thyromegaly ,no bruits, no JVD.] LUNGS: [Clear breath sounds bilaterally. No wheezes, rales, or rhonchi.] HEART: [Regular rate and rhythm. Normal S1 and S2, without murmurs, rub or gallop.] VASC: [No edema. Peripheral pulses normal and equal in all extremities.] ABD: [Bowel sounds present,soft, RUQ tender, no masses, no organomegaly.] : [Normal, no suprapubic tenderness.] LYMPH: [No lymphadenopathy noted.] EXT: [ Warm soft, non tender.] SKIN: [ No rashes or lesions.] NEURO: [ Awake Alert and oriented x3.] LABORATORY: [ ] Hematology Labs: Test 01/26/25 06:00 Range/Units White Blood Count 13.1 H 4.8-10.8 K/uL Red Blood Count 5.34 4.50-6.20 MIL/uL Hemoglobin 14.2 14.0-18.0 g/dL Hematocrit 43.2 42-54 % Mean Corpuscular Volume 80.9 79-99 fL Mean Corpuscular Hemoglobin 26.6 L 27.0-33.0 pg Mean Corpuscular Hemoglobin Concent 32.9 32.0-36.0 g/dL Red Cell Distribution Width 13.7 11.0-15.5 % Platelet Count 250 130-400 K/uL Mean Platelet Volume 9.0 7.5-10.5 fL Immature Granulocyte % (Auto) 0.5 0-1 % Neutrophils (%) (Auto) 81.0 H 40.0-77.0 % Lymphocytes (%) (Auto) 10.1 L 21.0-51.0 % Monocytes (%) (Auto) 8.3 3.0-13.0 % Eosinophils (%) (Auto) 0.0 0.0-8.0 % Basophils (%) (Auto) 0.1 0.0-5.0 % Neutrophils # (Auto) 10.6 H 1.8-7.7 K/uL Lymphocytes # (Auto) 1.3 1.0-4.8 K/uL Monocytes # (Auto) 1.1 H 0.1-1.0 K/uL Eosinophils # (Auto) 0.00 0.00-0.70 K/uL Basophils # (Auto) 0.01 0.00-0.20 K/uL Absolute Immature Granulocyte (auto 0.07 0-1 K/uL Nucleated Red Blood Cells 0.0 0.0-0.19 % Chemistry Labs: Test 01/26/25 06:00 Range/Units Sodium Level 134 L 136-145 mmol/L Potassium Level 4.3 3.5-5.1 mmol/L Chloride Level 101 101-111 mmol/L Carbon Dioxide Level 28 21-32 mmol/L Blood Urea Nitrogen 13 7-18 mg/dL Creatinine 1.1 0.5-1.3 mg/dL Glomerular Filtration Rate Calc 82 >90 mL/min Random Glucose 120 H 70-105 mg/dL Total Calcium 8.7 8.5-10.1 mg/dL Total Bilirubin 0.6 0.2-1.0 mg/dL Aspartate Amino Transf (AST/SGOT) 46 H 10-37 U/L Alanine Aminotransferase (ALT/SGPT) 77 12-78 U/L Alkaline Phosphatase 94 50-136 U/L Total Protein 6.7 6.0-8.3 g/dL Albumin 3.3 L 3.5-5.0 g/dL DIAGNOSTICS / RADIOLOGY: [Copy/Paste Echos/Imaging Report here] ASSESSMENT: [] S/p robotic cholecystectomy Overall doing well PLAN: Advance diet Ambulate DC home tomorrow with a RADHA Follow-up in my office on LOTTIE GONSALEZ MD January 27, 2025 15:42
[2025-01-28] VITALS (8 sets, daily range): BP systolic 110–134; BP diastolic 69–84; PULSE 70–106; RESP 18; TEMP 97.8–98.8; O2SAT 98
[2025-01-28] MEDS: DiphenhydrAMINE HCL 25 MG CAPSULE PO PRN (02:27)
--- NOTE | 2025-01-28 13:09 | HMCIMG ---
Exam Type: ABD 1VW Clinical Information: abdominal pain Comparison: None Findings and impression: Multiple slightly prominent loops of small and large bowel are seen but there is no obvious dilatation or transition point to suggest obstruction at this time and there are no other abnormalities.
--- NOTE | 2025-01-28 22:42 | PN ---
[facility] PROGRESS NOTE Date of Service: January 28, 2025 Time of Service: 22:41 SUBJECTIVE: 49-year-old male with past medical history of hypertension, obesity, who presented to [facility] ED on 01/23/25 was brought by his spouse for concerns of abdominal pain associated with nausea. Patient reports pain mostly to the epigastric and right upper quadrant region. He reports nausea however no emesis. No chest pain shortness breath fever chills constipation diarrhea or dysuria. Patient states he has had similar episodes in the past, however today's pain was more intense, therefore he decided to come to the hospital for further evaluation. Upon arrival to ED he was noted afebrile, blood pressure 132/97, heart rate 97, respiration rate 16, O2 saturation 98% on room air. Further evaluation labs revealed no worrisome findings. CT a/P showing moderately distended gallbladder with wall thickening consistent with acute cholecystitis. In the ED patient was initiated on IVF, IV Protonix, given doses of IV morphine, and IM Toradol for pain control. Patient was admitted for further evaluation. Surgery consult was placed. 01/24/25 patient was seen and evaluated today morning. His family at the bedside. He had a mild right upper quadrant pain but it was tolerated as per the patient. He denies nausea and vomiting today. CT abdomen and pelvis showed gallbladder moderately distended with irregular contour possible wall thickening. Findings may be related to acute cholecystitis. Abdominal ultrasound showed sludge material with tiny gallstones in the gallbladder with no ductal dilation. Patient's last bowel movement was yesterday. Surgery recommended magnesium citrate for bowel patient and put him on full liquid diet for today and NPO from midnight. Plan is for possible robotic cholecystectomy tomorrow morning. 01/25/25 the patient was taken down in OR for surgery today morning. Patient underwent robotic cholecystectomy performed by . Patient has a RADHA drain. Patient was evaluated after when he got back from surgery in afternoon. Patient was in deep sleep when seen. His CBC and CMP are unremarkable. Patient was started on liquid diet and we will gradually advance as tolerated. We will wait for surgical clearance for discharge. 01/26/25 patient was seen and examined. Case discussed with RN patient was doing well postoperatively we will advance diet and activity. Infectious Disease wants one more day of antibiotics in the hospital. Continue we will consider discharging tomorrow 01/27/25 patient seen and examined. Case discussed with the RN. Patient reports abdominal pain. Otherwise he is doing well. Discussed with family by the bedside. Likely discharge later today if surgical clearance is obtained or tomorrow 01/28/25 patient seen and examined. Case discussed with the RN. Patient reports abdominal pain. DW /will obtain abdominal films REVIEW OF SYSTEMS CONSTITUTIONAL: Denies fevers, chills, or night sweats. No unintentional weight loss reported. CARDIOVASCULAR: Denies any exertional angina, dyspnea on exertion, orthopnea, paroxysmal nocturnal dyspnea, palpitations, life-threatening arrhythmias, claudication. PULMONARY: Denies any shortness of breath, cough, phlegm/sputum, hemoptysis, pleuritic chest pain. SLEEP: Denies morning headaches, daytime somnolence or napping. Denies difficulty falling asleep, staying asleep, waking from sleep. Denies knowledge of snoring. GASTROINTESTINAL: Mild right upper quadrant pain with mild tenderness. Nausea resolved. GENITOURINARY: Denies frequency, urgency, nocturia, hematuria or incontinence (Storage/Irritative symptoms.) Low urinary stream, straining to void, urinary intermittency or hesitancy, splitting of the voiding stream, terminal dribbling. ENDOCRINOLOGIC: Denies polyuria, polydipsia, polyphagia or heat/cold intolerances. ONCOLOGIC: Denies personal history of malignancy. PHYSICAL EXAM GENERAL APPEARANCE: The patient is awake, alert, and oriented, in no acute cardiopulmonary distress. NECK: Supple. No JVD. No thyromegaly. No submental, submandibular, pre- /postauricular, occipital or supraclavicular lymphadenopathy. CHEST: Normal chest expansion. No Telemetry. LUNGS: Absence of any rales, rhonchi or any wheezing. CARDIOVASCULAR: Regular. S1 and S2 normal. No appreciable rubs, murmurs or gallops. ABDOMEN: Soft, bowel sounds positive. Mild Epigastric and RUQ tenderness. No rebound tenderness no guarding no rigidity. Nondistended. : Deferred. No Kenny. EXTREMITIES: Non-edematous and not cyanotic. No clubbing. Good capillary refill. SKIN: No skin breakdown. Vital Signs (last 8hr) Date Time Temp Pulse Resp B/P (MAP) Pulse Ox O2 Delivery O2 Flow Rate FiO2 01/28/25 20:00 98.2 80 18 110/78 98 Room Air 01/28/25 16:23 97.9 73 18 125/81 99 Room Air LABS: Current Medications Medications (Trade) Dose Ordered Sig/Margarito Route PRN Reason Start Time Stop Time Status Last Admin Dose Admin Acetaminophen (TYLenol 325MG TAB) 650 mg Q4H PRN PO MILD PAIN (1-3) 01/23/25 17:30 02/22/25 17:29 01/24/25 21:39 650 MG Acetaminophen (TYLenol 325MG TAB) 650 mg Q6H PRN PO TEMPERATURE GREATER THAN 101.5 01/23/25 17:30 02/22/25 17:29 Al Hydroxide/Mg Hydroxide (MAALox PLUS 30ML) 30 ml Q6H PRN PO INDIGESTION 01/23/25 17:30 02/22/25 17:29 Diphenhydramine HCl (BENAdryl CAP) 25 mg Q4H PRN PO MILD ITCHING/RASH 01/23/25 17:30 02/22/25 17:29 01/28/25 02:27 25 MG Famotidine (Pepcid 20mg Vial) 20 mg BID IV 01/23/25 21:00 02/22/25 20:59 01/28/25 21:28 20 MG Guaifenesin/ Dextromethorphan (RobiTUSSin DM 200/20MG 10ML) 10 ml Q4H PRN PO COUGH 01/23/25 17:30 02/22/25 17:29 01/25/25 23:33 10 ML Hydralazine HCl (APRESOLine 20MG INJ) 10 mg Q6H PRN IV For:SBP above 160;DBP above 90 01/23/25 17:30 02/22/25 17:29 Hydromorphone HCl (DiLAUDid 1MG INJ) 1 mg Q3H3 PRN IVP SEVERE PAIN (7-10) 01/25/25 14:30 01/30/25 14:29 01/28/25 12:41 1 MG Lactated Ringer's 1,000 ml @ 75 mls/hr [id number] IV 01/23/25 17:30 02/22/25 17:29 01/28/25 17:42 75 MLS/HR Lactulose (Constulose 20gm/ 30ml Udcup) 20 gm BID PRN PO CONSTIPATION 01/23/25 17:30 02/22/25 17:29 Losartan Potassium (CozAAR 25MG TAB) 25 mg DAILY PO 01/26/25 09:00 02/25/25 08:59 01/28/25 09:33 25 MG Montelukast Sodium (SinguLAIR) 10 mg DAILY PO 01/26/25 09:00 02/25/25 08:59 01/28/25 09:33 10 MG Morphine Sulfate (morPHINE 2MG SYG) 2 mg Q4H PRN IV MODERATE PAIN (4-6) 01/23/25 17:30 01/25/25 14:39 DC Morphine Sulfate (morPHINE 4MG SYG) 4 mg Q4H PRN IV SEVERE PAIN (7-10) 01/23/25 17:30 01/25/25 14:39 DC 01/25/25 14:08 4 MG Nitroglycerin (Nitrostat) 0.4 mg PROTOCOL PRN SL CHEST PAIN 01/23/25 17:30 02/22/25 17:29 Ondansetron HCl (zoFRAN 4MG INJ) 4 mg Q6H PRN IV NAUSEA/VOMITING 01/23/25 17:30 02/22/25 17:29 Oxycodone/ Acetaminophen (perCOCET) 1 tab Q4H PRN PO MODERATE PAIN (4-6) 01/25/25 14:30 02/01/25 14:29 01/28/25 19:23 1 TAB Piperacillin Sod/ Tazobactam Sod 50 ml @ 12.5 mls/hr Q8H IV 01/23/25 21:00 02/02/25 20:59 01/28/25 21:28 12.5 MLS/HR Simethicone (Mylicon) 80 mg TIDP PRN PO GI GAS 01/26/25 16:30 02/25/25 16:29 01/28/25 19:24 80 MG DIAGNOSTICS / RADIOLOGY: [ ] ASSESSMENT: Status post robotic cholecystectomy 01/25/25 Acute cholecystitis POA Essential hypertension Obesity PLAN: Patient was discharged in stable medical condition AIME GRANGER MD January 28, 2025 22:42
[2025-01-29 03:42] VITALS: BP 115/79; PULSE 80; RESP 18; TEMP 98.1
[2025-01-29 07:36] VITALS: BP 121/83; PULSE 74; RESP 18; TEMP 98.2
--- NOTE | 2025-01-29 09:22 | PN ---
GENERAL SURGERY PROGRESS NOTE DATE OF SERVICE: January 29, 2025 TIME OF SERVICE: 09:21 PROBLEM LISTS: [ ] INTERVAL HISTORY: [ ] PHYSICAL EXAMINATION: GENERAL: [Patient is lying comfortably in bed, not in any obvious distress.] HEAD: [Normal with no signs of head trauma.] EYES: [Not pale not jaundiced afebrile to touch.] ENT: [ Normal.] NECK: [Supple,no tenderness,no lymphadenopathy,no masses,no thyromegaly ,no bruits, no JVD.] LUNGS: [Clear breath sounds bilaterally. No wheezes, rales, or rhonchi.] HEART: [Regular rate and rhythm. Normal S1 and S2, without murmurs, rub or gallop.] VASC: [No edema. Peripheral pulses normal and equal in all extremities.] ABD: [Bowel sounds present,soft, RUQ tender, no masses, no organomegaly.] : [Normal, no suprapubic tenderness.] LYMPH: [No lymphadenopathy noted.] EXT: [ Warm soft, non tender.] SKIN: [ No rashes or lesions.] NEURO: [ Awake Alert and oriented x3.] LABORATORY: [ ] DIAGNOSTICS / RADIOLOGY: [Copy/Paste Echos/Imaging Report here] ASSESSMENT: [] S/p robotic cholecystectomy Overall doing well Abdominal cramps PLAN: LOTTIE GONSALEZ MD January 29, 2025 09:22
[2025-01-29 11:31] VITALS: BP 115/78; PULSE 82; RESP 18; TEMP 98.3
--- NOTE | 2025-01-29 12:37 | HMCIMG ---
Exam Type: US VENOUS DOPPLER BILATERAL Clinical Information: calf pain Comparison: None Findings: The examination shows normal deep venous system. There is normal compressibility at all levels. There is no intraluminal clot. There is no occlusion. Adequate response is obtained on augmentation. Impression: No evidence of DVT.
--- NOTE | 2025-01-29 13:09 | PN ---
[facility] PROGRESS NOTE Date of Service: January 29, 2025 Time of Service: 13:03 SUBJECTIVE: 49-year-old male with past medical history of hypertension, obesity, who presented to [facility] ED on 01/23/25 was brought by his spouse for concerns of abdominal pain associated with nausea. Patient reports pain mostly to the epigastric and right upper quadrant region. He reports nausea however no emesis. No chest pain shortness breath fever chills constipation diarrhea or dysuria. Patient states he has had similar episodes in the past, however today's pain was more intense, therefore he decided to come to the hospital for further evaluation. Upon arrival to ED he was noted afebrile, blood pressure 132/97, heart rate 97, respiration rate 16, O2 saturation 98% on room air. Further evaluation labs revealed no worrisome findings. CT a/P showing moderately distended gallbladder with wall thickening consistent with acute cholecystitis. In the ED patient was initiated on IVF, IV Protonix, given doses of IV morphine, and IM Toradol for pain control. Patient was admitted for further evaluation. Surgery consult was placed. 01/24/25 patient was seen and evaluated today morning. His family at the bedside. He had a mild right upper quadrant pain but it was tolerated as per the patient. He denies nausea and vomiting today. CT abdomen and pelvis showed gallbladder moderately distended with irregular contour possible wall thickening. Findings may be related to acute cholecystitis. Abdominal ultrasound showed sludge material with tiny gallstones in the gallbladder with no ductal dilation. Patient's last bowel movement was yesterday. Surgery recommended magnesium citrate for bowel patient and put him on full liquid diet for today and NPO from midnight. Plan is for possible robotic cholecystectomy tomorrow morning. 01/25/25 the patient was taken down in OR for surgery today morning. Patient underwent robotic cholecystectomy performed by . Patient has a RADHA drain. Patient was evaluated after when he got back from surgery in afternoon. Patient was in deep sleep when seen. His CBC and CMP are unremarkable. Patient was started on liquid diet and we will gradually advance as tolerated. We will wait for surgical clearance for discharge. 01/26/25 patient was seen and examined. Case discussed with RN patient was doing well postoperatively we will advance diet and activity. Infectious Disease wants one more day of antibiotics in the hospital. Continue we will consider discharging tomorrow 01/27/25 patient seen and examined. Case discussed with the RN. Patient reports abdominal pain. Otherwise he is doing well. Discussed with family by the bedside. Likely discharge later today if surgical clearance is obtained or tomorrow 01/28/25 patient seen and examined. Case discussed with the RN. Patient reports abdominal pain. DW /will obtain abdominal films 01/29/25: Patient was seen and examined this morning at bedside. The patient states he is feeling well, however continues with abdominal cramps. On examination, the patient was wearing and abdominal binder and states that it has been helping. He reports the abdominal pain a 3/10 on the pain scale. The patient continues with IV antibiotics. RADHA drain had a total of 18 mL serosanguineous fluid in the past 48 hours, per nurse. Patient complained of swelling and erythema in his calf. Doppler ultrasound was negative for DVT. Per Nurse, Dr. Elizalde has cleared the patient for discharge. REVIEW OF SYSTEMS CONSTITUTIONAL: Denies fevers, chills, or night sweats. No unintentional weight loss reported. CARDIOVASCULAR: Denies any exertional angina, dyspnea on exertion, orthopnea, paroxysmal nocturnal dyspnea, palpitations, life-threatening arrhythmias, claudication. PULMONARY: Denies any shortness of breath, cough, phlegm/sputum, hemoptysis, pleuritic chest pain. SLEEP: Denies morning headaches, daytime somnolence or napping. Denies difficulty falling asleep, staying asleep, waking from sleep. Denies knowledge of snoring. GASTROINTESTINAL: Mild right upper quadrant pain with mild tenderness. Nausea resolved. GENITOURINARY: Denies frequency, urgency, nocturia, hematuria or incontinence (Storage/Irritative symptoms.) Low urinary stream, straining to void, urinary intermittency or hesitancy, splitting of the voiding stream, terminal dribbling. ENDOCRINOLOGIC: Denies polyuria, polydipsia, polyphagia or heat/cold intolerances. ONCOLOGIC: Denies personal history of malignancy. PHYSICAL EXAM GENERAL APPEARANCE: The patient is awake, alert, and oriented, in no acute cardiopulmonary distress. NECK: Supple. No JVD. No thyromegaly. No submental, submandibular, pre- /postauricular, occipital or supraclavicular lymphadenopathy. CHEST: Normal chest expansion. No Telemetry. LUNGS: Absence of any rales, rhonchi or any wheezing. CARDIOVASCULAR: Regular. S1 and S2 normal. No appreciable rubs, murmurs or gallops. ABDOMEN: Soft, bowel sounds positive. Mild Epigastric and RUQ tenderness. No rebound tenderness no guarding no rigidity. Nondistended. : Deferred. No Kenny. EXTREMITIES: Non-edematous and not cyanotic. No clubbing. Good capillary refill. SKIN: No skin breakdown. Vital Signs (last 8hr) Date Time Temp Pulse Resp B/P (MAP) Pulse Ox O2 Delivery O2 Flow Rate FiO2 01/29/25 11:31 98.2 82 18 115/78 94 Room Air 01/29/25 07:36 98.2 74 18 121/83 83 Room Air LABS: Current Medications Medications (Trade) Dose Ordered Sig/Margarito Route PRN Reason Start Time Stop Time Status Last Admin Dose Admin Acetaminophen (TYLenol 325MG TAB) 650 mg Q4H PRN PO MILD PAIN (1-3) 01/23/25 17:30 02/22/25 17:29 01/24/25 21:39 650 MG Acetaminophen (TYLenol 325MG TAB) 650 mg Q6H PRN PO TEMPERATURE GREATER THAN 101.5 01/23/25 17:30 02/22/25 17:29 Al Hydroxide/Mg Hydroxide (MAALox PLUS 30ML) 30 ml Q6H PRN PO INDIGESTION 01/23/25 17:30 02/22/25 17:29 Diphenhydramine HCl (BENAdryl CAP) 25 mg Q4H PRN PO MILD ITCHING/RASH 01/23/25 17:30 02/22/25 17:29 01/28/25 02:27 25 MG Famotidine (Pepcid 20mg Vial) 20 mg BID IV 01/23/25 21:00 02/22/25 20:59 01/29/25 10:40 20 MG Guaifenesin/ Dextromethorphan (RobiTUSSin DM 200/20MG 10ML) 10 ml Q4H PRN PO COUGH 01/23/25 17:30 02/22/25 17:29 01/25/25 23:33 10 ML Hydralazine HCl (APRESOLine 20MG INJ) 10 mg Q6H PRN IV For:SBP above 160;DBP above 90 01/23/25 17:30 02/22/25 17:29 Hydromorphone HCl (DiLAUDid 1MG INJ) 1 mg Q3H3 PRN IVP SEVERE PAIN (7-10) 01/25/25 14:30 01/30/25 14:29 01/28/25 12:41 1 MG Lactated Ringer's 1,000 ml @ 75 mls/hr [id number] IV 01/23/25 17:30 02/22/25 17:29 01/29/25 06:59 75 MLS/HR Lactulose (Constulose 20gm/ 30ml Udcup) 20 gm BID PRN PO CONSTIPATION 01/23/25 17:30 02/22/25 17:29 Losartan Potassium (CozAAR 25MG TAB) 25 mg DAILY PO 01/26/25 09:00 02/25/25 08:59 01/29/25 10:40 25 MG Montelukast Sodium (SinguLAIR) 10 mg DAILY PO 01/26/25 09:00 02/25/25 08:59 01/29/25 10:40 10 MG Morphine Sulfate (morPHINE 2MG SYG) 2 mg Q4H PRN IV MODERATE PAIN (4-6) 01/23/25 17:30 01/25/25 14:39 DC Morphine Sulfate (morPHINE 4MG SYG) 4 mg Q4H PRN IV SEVERE PAIN (7-10) 01/23/25 17:30 01/25/25 14:39 DC 01/25/25 14:08 4 MG Nitroglycerin (Nitrostat) 0.4 mg PROTOCOL PRN SL CHEST PAIN 01/23/25 17:30 02/22/25 17:29 Ondansetron HCl (zoFRAN 4MG INJ) 4 mg Q6H PRN IV NAUSEA/VOMITING 01/23/25 17:30 02/22/25 17:29 Oxycodone/ Acetaminophen (perCOCET) 1 tab Q4H PRN PO MODERATE PAIN (4-6) 01/25/25 14:30 02/01/25 14:29 01/29/25 10:42 1 TAB Piperacillin Sod/ Tazobactam Sod 50 ml @ 12.5 mls/hr Q8H IV 01/23/25 21:00 02/02/25 20:59 01/29/25 05:04 12.5 MLS/HR Simethicone (Mylicon) 80 mg TIDP PRN PO GI GAS 01/26/25 16:30 02/25/25 16:29 01/29/25 10:42 80 MG DIAGNOSTICS / RADIOLOGY: [facility] [address] [place] [address] IMAGING REPORT Signed PATIENT: TULIO DENSON MR#: [id number] : 1975 SEX: M AGE: 49 LOCATION: [facility] ORDER [id number] STATUS: ADM IN REPORT#: [id number] SERVICE 1053 REASON: calf pain ORDERING PHYSICIAN: LOTTIE GONSALEZ MD PROCEDURE: VENOUS THOMAS - US VENOUS DOPPLER BILATERAL Exam Type: US VENOUS DOPPLER BILATERAL Clinical Information: calf pain Comparison: None Findings: The examination shows normal deep venous system. There is normal compressibility at all levels. There is no intraluminal clot. There is no occlusion. Adequate response is obtained on augmentation. Impression: No evidence of DVT. DICTATED BY: RUSLAN JACKSON MD DATE: 01/29/25 1234 ELECTRONICALLY SIGNED BY: RUSLAN JACKSON MD DATE: 01/29/25 1237 ASSESSMENT: Status post robotic cholecystectomy 01/25/25 Acute cholecystitis POA Essential hypertension Obesity PLAN: Acute cholecystitis -Continue Zosyn -Continue monitoring RADHA drainage -Continue wearing abdominal binder. -Follow general surgery recommendations. KATELYNN WILLIS MD January 29, 2025 13:09
[2025-01-29 16:09] VITALS: BP 113/81; PULSE 74; RESP 18; TEMP 98.3
[2025-01-29] MEDS ORDERED: AMOX-426 PO (16:29)
--- NOTE | 2025-01-29 16:31 | DS ---
Discharge Summary Hospital Course Summary: The patient is a 49-year-old male with past medical history of hypertension, obesity, who presented to [facility] ED on 01/23/25 for concerns of abdominal pain associated with nausea. The patient reported pain mostly to the epigastric and right upper quadrant region. Upon arrival to ED he was noted afebrile, blood pressure 132/97, heart rate 97, respiration rate 16, O2 saturation 98% on room air. Further evaluation labs was unremarkable. Ct of the abdomen and pelvis showed moderately distended gallbladder with wall thickening consistent with acute cholecystitis. The patient was initiated on IVF, IV Protonix, IV morphine, and IM Toradol for pain control. Patient was admitted for further evaluation. General surgery was consulted. An abdominal ultrasound was done, and showed sludge material with tiny gallstones in the gallbladder with no ductal dilation. General surgery recommended magnesium citrate for bowel movement, and planned for a robotic cholecystectomy. The robotic cholecystectomy was preformed on 01/25, and a RADHA drain was placed. The patient was started on a liquid diet, and the diet was advanced as tolerated. The patient received IV antibiotics, and was doing well. The patient complained of abdominal cramps. A abdominal x-ray was done, which showed no obvious dilatation or transition point to suggest a obstruction. The patient complained of erythema and swelling in his lower extremity. A lower extremity doppler ultrasound was preformed, and showed no evidence of a DVT. The patient was cleared for discharge by general surgery, and was advised to follow up with the general surgeon within 1 week upon discharge. Marketing Administrative Assistant(s): General surgery Procedure(s): [place] [address] [place] [id number] IMAGING REPORT Signed PATIENT: TULIO DENSON MR#: [id number] : 1975 SEX: M AGE: 49 LOCATION: [facility] ORDER 1056 STATUS: ADM IN REPORT#: [id number] SERVICE 1053 REASON: calf pain ORDERING PHYSICIAN: EDILBERTO GONSALEZ MD PROCEDURE: VENOUS THOMAS - US VENOUS DOPPLER BILATERAL Exam Type: US VENOUS DOPPLER BILATERAL Clinical Information: calf pain Comparison: None Findings: The examination shows normal deep venous system. There is normal compressibility at all levels. There is no intraluminal clot. There is no occlusion. Adequate response is obtained on augmentation. Impression: No evidence of DVT. DICTATED BY: RUSLAN JACKSON MD DATE: 01/29/25 1234 ELECTRONICALLY SIGNED BY: RUSLAN JACKSON MD DATE: 01/29/25 1237 [place] [address] [id number] IMAGING REPORT Signed PATIENT: TULIO DENSON MR#: [id number] : 1975 SEX: M AGE: 49 LOCATION: 3D ORDER 1219 STATUS: ADM IN REPORT#: [id number] SERVICE 1212 REASON: abdominal pain ORDERING PHYSICIAN: SABRINA GRIFFIN MD PROCEDURE: ABD 1VW - ABD 1VW Exam Type: ABD 1VW Clinical Information: abdominal pain Comparison: None Findings and impression: Multiple slightly prominent loops of small and large bowel are seen but there is no obvious dilatation or transition point to suggest obstruction at this time and there are no other abnormalities. DICTATED BY: RUSLAN JACKSON MD DATE: 01/28/25 1306 ELECTRONICALLY SIGNED BY: RUSLAN JACKSON MD DATE: 01/29/25 0991 [place] [address] [id number] IMAGING REPORT Signed PATIENT: TULIO DENSON MR#: [id number] : 1975 SEX: M AGE: 49 LOCATION: [facility]DH ORDER 1714 STATUS: ADM IN REPORT#: [id number] SERVICE 171 REASON: RUQ pain ORDERING PHYSICIAN: DORCAS SANTANA PROCEDURE: ABDRUQLTD - US ABDOMINAL RUQ\LTD US ABDOMINAL RUQ\E\LTD HISTORY: Right upper quadrant pain COMPARISON: None TECHNIQUE: Right upper quadrant abdominal ultrasound study was performed. FINDINGS: Liver measures 16.2 cm. The visualized portion of the pancreas is within normal limits. Liver is echogenic consistent with liver parenchymal disease. Slight anterior and tiny gallstones are seen within the gallbladder. Common duct measures 3 mm. Gallbladder wall is thick measuring 6 to 9 mm Right kidney measures 11.9 x 6.4 x 4.8 cm. No hydronephrosis is seen of the right kidney. IMPRESSION: 1. Sludge material with tiny gallstones in the gallbladder. No ductal dilatation is seen. Gallbladder wall is thick measuring 6 to 9 mm. 2. No hydronephrosis is seen. DICTATED BY: JUSTINE THAKUR MD DATE: 01/23/251922 ELECTRONICALLY SIGNED BY: JUSTINE THAKUR MD DATE: 01/23/251925 [place] [address] [place] [id number] IMAGING REPORT Signed PATIENT: TULIO DENSON MR#: [id number] : 1975 SEX: M AGE: 49 LOCATION: ED ORDER 1223 STATUS: [facility] REPORT#: [id number] SERVICE 1221 REASON: RUQ, epigastric pain ORDERING PHYSICIAN: NAYE ALFREDO PROCEDURE: ABD PEL W - CT ABDOMEN/PELVIS W/CONTRAST CT ABDOMEN/PELVIS W/CONTRAST HISTORY: Epigastric pain COMPARISON: 04/10/2019 TECHNIQUE: Multiple sequential axial images of the abdomen and pelvis were obtained from the dome of the diaphragm through symphysis pubis. Patient was not given contrast through intravenous route. Oral contrast was not given. FINDINGS: No pleural effusion is seen bilaterally. There is no evidence of parenchymal disease or pulmonary nodule of the visualized lower lungs. Degenerative changes of the thoracolumbar spine are present. The heart is not enlarged. Gallbladder is moderately distended with irregular contour and possible wall thickening. Findings may be related to acute cholecystitis. Clinical correlation is recommended. There is diverticulosis. The liver, spleen, adrenal glands and pancreas are unremarkable. There is no evidence of hydronephrosis bilaterally. No evidence of renal stone is seen. Fecal material is seen in the colon. There are normal size retroperitoneal and mesenteric lymph nodes. No ascites is seen. No CT evidence of acute appendicitis is seen. Clinical correlation is Pelvic sidewalls are symmetric bilaterally. Bladder is poorly distended. IMPRESSION: 1. Gallbladder is moderately distended with irregular contour and possible wall thickening. Findings may be related to acute cholecystitis. Clinical correlation is recommended. There is diverticulosis. CT was performed with one or more following dose reduction techniques: automated exposure control, adjustment of the mA and kv according to patient's size, or use of a iterative reconstruction technique. DICTATED BY: JUSTINE THAKUR MD DATE: 01/23/25 1535 ELECTRONICALLY SIGNED BY: JUSTINE THAKUR MD DATE: 01/23/25 165 OPERATIVE REPORT Name: TULIO DENSON Acct: [id number] MR: [id number] : 1975 Admit Date: 01/23/25 EDILBERTO GONSALEZ MD [place] [address] [address] OP Procedure: Robotic Maggie OP Procedure Note OPERATIVE PROCEDURE NOTE DATE OF SERVICE: January 25, 2025 PREOPERATIVE DIAGNOSIS: [ ] POSTOPERATIVE DIAGNOSIS: [ ] PROCEDURES PREFORMED: 1. Robotic Cholecystectomy SURGEON: Edilberto Gonsalez MD ANESTHESIA: General. ESTIMATED BLOOD LOSS: Minimal. SPECIMEN(S) REMOVED: Gallbladder. FINDINGS: Very enlarged tense gallbladder moderate right upper quadrant inflammatory adhesions COMPLICATIONS: None. DESCRIPTION OF PROCEDURE: The patient was brought into the Operating Room. After proper identification, the patient was placed on the operating table in the supine position. General anesthesia was then administered and the patient was endotracheally intubated. Attention was then focussed in the area of the abdomen. The same was prepped and draped in the usual sterile fashion. An appropriate time-out was then carried out at this point. Then, I proceeded by making an incision in the infraumbilical region. The incision was carried through skin and subcutaneous tissue until the fascia was identified. The fascia was then carefully incised and the stay stitches were placed on either side of the fascia and the Anton port was then introduced. CO2 was insufflated into the abdomen and the robotic camera was then introduced. Inspection of the abdomen did not show any anterior abdominal wall adhesions. The gallbladder was noted to be enlarged and tense with evidence of moderate right upper quadrant inflammatory adhesions. So at this point, I proceeded by placing the left-sided port and also the right-sided port under vision and my physiotherapist's assistant; port was then placed right-sided lateral. So, at this point, the patient was then placed in slight reverse Trendelenburg position and rotated to his left. The robot was then brought in and then we proceeded by docking the robot with no difficulty. Once the robot was docked and everything looked fine, I proceeded by going into the console area. My physiotherapist's assistant, then grasped the fundus of the gallbladder and the same was retracted cephalad and using the grasper and the robotic [ ], I proceeded by taking down the inflammatory adhesions in the right upper quadrant. At the infundibulum, I proceeded by grasping the infundibulum, I proceeded by carefully opening the peritoneum covering the triangle of Calot and I was able to expose the cystic duct and the cystic artery. Each of these structures were then skeletonized for a distance of about 2 cm and then I proceeded by placing clips; proximal and distal clips on each of these structures. Using the robotic scissors, I proceeded by transecting these 2 structures. The gallbladder was then removed from the gallbladder fossa using the robotic cautery all the way down until I was able to remove it at the fundus as well. Further inspection did not reveal any other pathology. Hemostasis was noted to be adequate. So, at this point, the robot was then undocked. I scrubbed in and the gallbladder was then extracted from the abdomen using an Endopouch. Copious amount of irrigation was carried out at this point. Hemostasis was noted to be adequate. Then, I proceeded by closing the wound. Ports were withdrawn under vision. CO2 was let out of the abdomen. The infraumbilical fascia was approximated together using 0 Vicryl [id number] stitches and the skin was approximated together using 4-0 Monocryl subcuticular closure. Steri-Strips and sterile dressings were then applied. Instrument and sponges count was found correct x2. The patient was then woken up, extubated and taken to Recovery Room in stable condition. The patient tolerated the procedure well. EDILBERTO GONSALEZ MD January 25, 2025 12:28 Electronically Signed by: Electronically Co-Signed by: Assessment/Plan: ASSESSMENT: Status post robotic cholecystectomy 01/25/25 Acute cholecystitis POA Essential hypertension Obesity Discharge Instructions: Follow up appointment: Patient advised to follow up with Dr.Oyetunde Gonsalez at his clinic within 1 week upon discharge. The patient is advised to follow up with his PCP within 1 week upon discharge. Procedures: Robotic Cholecystectomy Imaging: Reports attached to summary Microbiology:n/a Activity: ad ally home medications: continued new medications: Augmentin. Patient advised to use Tylenol and Ibuprofen as needed for pain. Teaching: We reinforced the importance of compliance with follow up appointments and medication compliance We advised the patient to follow up with PCP and General surgeon Dr. Edilberto Gonsalez within 1 week upon discharge.\ Emergency instructions: The patient was instructed to present to the nearest emergency department or call 911 should their symptoms return or worsen. Home Medications: Active Scripts Amoxicillin/Potassium Clav (Augmentin 500-125 Tablet) 500 Mg-125 Mg Tablet, 1 TAB PO BID for 10 Days, #20 TAB 0 Refills Prov:KATELYNN WILLIS MD 01/29/25 Reported Medications Losartan Potassium (Losartan Potassium) 25 Mg Tablet, 1 TAB PO DAILY for 30 Days, #30 TAB 0 Refills 01/24/25 Montelukast Sodium (Montelukast Sodium) 10 Mg Tablet, 1 TAB PO DAILY for 30 Days, #30 TAB 0 Refills 01/24/25 New Medications: Amoxicillin/Potassium Clav (Augmentin 500-125 Tablet) 500 Mg-125 Mg Tablet 1 TAB PO BID for 10 Days, #20 TAB 0 Refills Continued Medications: Losartan Potassium (Losartan Potassium) 25 Mg Tablet 1 TAB PO DAILY for 30 Days, #30 TAB 0 Refills Montelukast Sodium (Montelukast Sodium) 10 Mg Tablet 1 TAB PO DAILY for 30 Days, #30 TAB 0 Refills KATELYNN WILLIS MD January 29, 2025 16:31
--- NOTE | 2025-01-31 14:09 | NUR ---
Transitional Phone Call Spoke to Chelsy Naranjo, Spouse [phone], states patient is "getting by... he's good." States he is taking the antibiotic prescribed; no questions or concerns. States patient has follow up appointment with PCP - Dr. Chicas on 02/05/2025 at 0930 and surgeon - Dr. Elizalde on 02/05/2025 at 1100. No questions or concerns at this time.
== END 2025-01-29 18:20 | disposition home or self-care (01) | DRG 418 ==
LOC: EDH 11:25 → EDHIP 17:11 → 3DH 18:25
PROVIDERS: ADMIT Internal Medicine; ATTEND Internal Medicine
PROC: 8E0W4CZ Robotic Assisted Procedure of Trunk Region, Percutaneous Endoscopic Approach (ICD-10-PCS; 2025-01-25)
PROC: 0FT44ZZ Resection of Gallbladder, Percutaneous Endoscopic Approach (ICD-10-PCS; principal; 2025-01-25 10:10)
DX: K81.0 Acute cholecystitis (principal); R65.10 Systemic inflammatory response syndrome (SIRS) of non-infectious origin without acute organ dysfunction; E66.9 Obesity, unspecified; I10 Essential (primary) hypertension; Z87.442 Personal history of urinary calculi; Z68.39 Body mass index [BMI] 39.0-39.9, adult; Z90.49 Acquired absence of other specified parts of digestive tract; Z79.899 Other long term (current) drug therapy
CPT/HCPCS: 36415; 74018; 74177; 76705; 80048; 80053; 80076; 81001; 82948; 83690; 85025; 93970; 96372; 99285; A4450; G0378; J0690; J1100; J1171; J1885; J2003; J2270; J2405; J2543; J2704; J2710; J3010; J3490; J7030; J7120; Q0163; Q9967; A4216; A4222; A4223; A4930; C1769; J0665